=== PATIENT | male | born 1950 | race Caucasian/White ===

== ENCOUNTER 2020-12-22 11:14 | Outpatient (CLI) | payer MEDICARE, SELFPAY ==
--- NOTE | 2020-12-22 | ECG_ITS ---
Measurements Intervals [place] Rate: 87 P: FL: 0 QRS: 13 QRSD: 79 T: 29 QT: 357 QTc: 431 Interpretive Statements ATRIAL FIBRILLATION VENTRICULAR PREMATURE COMPLEX ABNORMAL ECG Electronically Signed On 12-22-2020 11:53:58 CDT by Mane Isaac D.O.
--- NOTE | ~2020-12-22 | XR_ITS ---
EXAMINATION: XR lumbar spine 6V w bending DATE: 12/22/2020 12:21 INDICATION: Low back pain TECHNIQUE: Anteroposterior, lateral in neutral, flexion and extension, and bilateral oblique views of the lumbar spine, and cone-down lateral view of the lumbosacral junction were obtained. COMPARISON: None FINDINGS: There are 3 mm of anterolisthesis of L4 on L5. No laxity is present with flexion or extensi on. There is no fracture. The vertebral body heights are maintained. There is moderate loss of interv ertebral disc space height at L4-5 and L5-S1 and mild loss of disc space height throughout the remain darci of the lumbar spine. There is severe facet osteoarthritis of the lower lumbar spine. Small degene rative osteophytes project from the anterior endplates of multiple vertebral bodies. Advanced osteoar thritis is noted in the hips. IMPRESSION: 1. Severe lumbar spondylosis without acute findings. Reviewed, dictated and finalized at location A.
== END 2020-12-22 11:15 | disposition home or self-care (01) ==
PROVIDERS: PCP Internal Medicine; Visit Provider Physician Assistant
DX: M54.5 Low back pain (principal); I49.9 Cardiac arrhythmia, unspecified; M47.816 Spondylosis without myelopathy or radiculopathy, lumbar region; R94.31 Abnormal electrocardiogram [ECG] [EKG]
CPT/HCPCS: 72114; 93005

== ENCOUNTER 2020-12-24 11:37 | Outpatient (CLI) | payer MEDICARE, SELFPAY ==
[2020-12-24 12:37] LABS: Hematocrit 45.6 % (42.0-52.0); Hemoglobin 15.8 g/dL (14.0-18.0); Mean Corpuscular HGB Conc 34.6 g/dl (32-36); Mean Corpuscular Hemoglobin 37.9 pg (26-34); Mean Corpuscular Volume 109.4 fl (80-100); Mean Platelet Volume 10.9 fl (7.4-10.4); Platelet Count Result 249 k/mm3 (150-375); Red Blood Count 4.17 M/mm3 (4.6-6.20); Red Cell Distribution Width 12.6 % (11.5-14.5); White Blood Count 7.9 K/mm3 (4.5-10.0)
[2020-12-24 12:52] LABS: Alanine Aminotransferase 23 U/L (4-50); Albumin Level 4.1 g/dL (3.5-5.1); Alkaline Phosphatase 61 U/L (38-126); Anion Gap 5 mmol/L (8-16); Aspartate Amino Transferase 28 U/L (17-59); Blood Urea Nitrogen 15 mg/dL (9-20); Calcium 9.1 mg/dL (8.4-10.2); Carbon Dioxide 29 mmol/L (22-30); Chloride 107 mmol/L (98-107); Cholesterol 165 mg/dL (0-200); Estimated Glomerular Filt Rate > 60; Glucose 102 mg/dL (75-110); HDL Direct 37 mg/dL; Potassium 4.4 mmol/L (3.4-5.0); Sodium 141 mmol/L (137-145); Triglycerides 50 mg/dL (<150)
[2020-12-24 13:03] LABS: LDL Cholesterol Direct 112 mg/dL
[2020-12-24 13:22] LABS: Prostate Specific Antigen 2.2 ng/mL (< OR = 4.0)
[2020-12-24 15:08] LABS: Folic Acid 15.3 ng/mL (2.76->20); Vitamin B12 < 159.0 pg/mL (239-931)
== END 2020-12-24 11:38 | disposition home or self-care (01) ==
PROVIDERS: PCP Internal Medicine; Visit Provider Physician Assistant
DX: Z12.5 Encounter for screening for malignant neoplasm of prostate (principal); R53.83 Other fatigue; R71.8 Other abnormality of red blood cells; I10 Essential (primary) hypertension
CPT/HCPCS: 36415; 80053; 80061; 82607; 82746; 84153; 84443; 85027; G0103

== ENCOUNTER 2022-10-29 10:25 | Outpatient (CLI) | payer MEDICARE, SELFPAY ==
[2022-10-29 11:14] LABS: Basophils Absolute Auto 0.1 K/mm3 (0.0-0.1); Basophils Percent Auto 0.6 % (0.2-1.2); Eosinophils Absolute Auto 0.3 K/mm3 (0-0.3); Eosinophils Percent Auto 3.1 % (0-4.4); Hemoglobin 17.3 g/dL (14.0-18.0); Immature Granulocyte Absolute 0.03 K/mm3 (0.00-0.031); Immature Granulocyte Percent A 0.4 % (0-0.5); Lymphocytes Absolute Auto 1.91 K/mm3 (0.9-3.2); Mean Corpuscular HGB Conc 33.9 g/dl (32-36); Mean Corpuscular Hemoglobin 31.9 pg (26-34); Mean Corpuscular Volume 93.9 fl (80-100); Monocytes Absolute Auto 0.6 K/mm3 (0.1-0.6); Monocytes Percent Auto 7.6 % (2.6-8.5); Neutrophils Absolute Auto 5.4 K/mm3 (1.3-6.7); Neutrophils Percent Auto 65.3 % (45.5-73.1); Platelet Count Result 250 k/mm3 (150-375); Red Blood Count 5.43 M/mm3 (4.6-6.20); Red Cell Distribution Width 13.4 % (11.5-14.5); White Blood Count 8.3 K/mm3 (4.5-10.0)
[2022-10-29 11:21] LABS: Alanine Aminotransferase 32 U/L (6-50); Albumin Level 4.3 g/dL (3.5-5.1); Alkaline Phosphatase 81 U/L (38-126); Anion Gap 9 mmol/L (8-16); Aspartate Amino Transferase 32 U/L (17-59); Bilirubin,Total 1.3 mg/dL (0.2-1.3); Blood Urea Nitrogen 13 mg/dL (9-20); Calcium 8.5 mg/dL (8.4-10.2); Carbon Dioxide 26 mmol/L (22-30); Chloride 102 mmol/L (98-107); Cholesterol 185 mg/dL (0-200); Estimated Glomerular Filt Rate > 60; Glucose 86 mg/dL (65-110); HDL Direct 45 mg/dL; Potassium 3.9 mmol/L (3.4-5.0); Sodium 137 mmol/L (137-145); Triglycerides 54 mg/dL (<150)
[2022-10-29 11:32] LABS: LDL Cholesterol Direct 106 mg/dL
[2022-10-29 11:52] LABS: Prostate Specific Antigen 2.1 ng/mL (< OR = 4.0)
[2022-10-29 12:27] LABS: Folic Acid 14.4 ng/mL (2.76->20)
== END 2022-10-29 10:26 | disposition home or self-care (01) ==
PROVIDERS: PCP Physician Assistant; Visit Provider Physician Assistant
DX: R53.83 Other fatigue (principal); I10 Essential (primary) hypertension; Z12.5 Encounter for screening for malignant neoplasm of prostate
CPT/HCPCS: 36415; 80053; 80061; 82607; 82746; 84153; 84443; 85025; G0103

== ENCOUNTER 2024-07-26 10:03 | Outpatient (CLI) | payer MEDICARE, SELFPAY ==
--- NOTE | ~2024-07-26 | XR_ITS ---
AP view of the pelvis and AP and lateral views of the bilateral hips Clinical history: Pain Findings: No acute fracture or dislocation is seen. There is severe degenerative change of both hip j oints, with joint space narrowing, a superiorly. There is [id number] appearance with reactive scler osis and mild remodeling of the femoral heads, left worse than right. There is subchondral cystic bhupendra nge in the bilateral acetabula and in the left femoral head.. Soft tissues are unremarkable. Impression: Severe osteoarthritis of both hip joints. Reviewed, dictated and finalized at location M. ER ROCKET ENGINE Impression: Severe osteoarthritis of both hip joints.
== END 2024-07-26 10:04 | disposition home or self-care (01) ==
LOC: MICIMG 10:04
PROVIDERS: PCP Nurse Practitioner; Visit Provider Nurse Practitioner
DX: M16.0 Bilateral primary osteoarthritis of hip (principal)
CPT/HCPCS: 73521

== ENCOUNTER 2024-07-27 14:09 | Outpatient (CLI) | payer MEDICARE, SELFPAY ==
--- NOTE | ~2024-07-27 | US_ITS ---
EXAMINATION: US venous doppler LE RT DATE: 07/27/2024 15:05 INDICATION: Right lower limb swelling. Other specified soft tissue disorders. TECHNIQUE: Grayscale ultrasound images without and with compression and Doppler ultrasound images of the right lower extremity veins were obtained. COMPARISON: None. FINDINGS: The visualized portions of right common femoral vein, profunda (deep) femoral vein, femoral vein, pop liteal vein, peroneal veins, posterior tibial veins, and greater saphenous vein outflow are patent. IMPRESSION: 1. No deep venous thrombosis. Reviewed, dictated and finalized at location A. RNATIONAL ACCOUNTANT
== END 2024-07-27 14:10 | disposition home or self-care (01) ==
PROVIDERS: PCP Nurse Practitioner; Visit Provider Nurse Practitioner
DX: M79.89 Other specified soft tissue disorders (principal)
CPT/HCPCS: 93971

== ENCOUNTER 2024-10-10 11:07 | Outpatient (CLI) | payer MEDICARE, SELFPAY ==
[2024-10-10 12:04] LABS: Basophils Absolute Auto 0.1 K/mm3 (0.0-0.1); Basophils Percent Auto 0.8 % (0.2-1.2); Eosinophils Absolute Auto 0.2 K/mm3 (0-0.3); Hematocrit 50.2 % (42.0-52.0); Hemoglobin 16.7 g/dL (14.0-18.0); Immature Granulocyte Absolute 0.04 K/mm3 (0.00-0.031); Immature Granulocyte Percent A 0.4 % (0-0.5); Lymphocytes Absolute Auto 1.33 K/mm3 (0.9-3.2); Lymphocytes Percent Auto 13.8 % (18.3-44.2); Mean Corpuscular HGB Conc 33.3 g/dl (32-36); Mean Corpuscular Hemoglobin 31.9 pg (26-34); Mean Platelet Volume 11.3 fl (7.4-10.4); Monocytes Absolute Auto 0.9 K/mm3 (0.1-0.6); Monocytes Percent Auto 9.2 % (2.6-8.5); Neutrophils Absolute Auto 7.1 K/mm3 (1.3-6.7); Neutrophils Percent Auto 73.8 % (45.5-73.1); Platelet Count Result 262 k/mm3 (150-375); Red Blood Count 5.23 M/mm3 (4.6-6.20); Red Cell Distribution Width 14.2 % (11.5-14.5); White Blood Count 9.7 K/mm3 (4.5-10.0)
[2024-10-10 12:08] LABS: Alanine Aminotransferase 25 U/L (6-50); Alkaline Phosphatase 75 U/L (38-126); Anion Gap 11 mmol/L (4-12); Aspartate Amino Transferase 30 U/L (17-59); Bilirubin,Total 1.2 mg/dL (0.2-1.3); Blood Urea Nitrogen 23 mg/dL (9-20); Calcium 8.8 mg/dL (8.4-10.2); Carbon Dioxide 23 mmol/L (22-30); Chloride 106 mmol/L (98-107); Cholesterol 172 mg/dL (0-200); Estimated Glomerular Filt Rate > 60; Glucose 103 mg/dL (65-110); HDL Direct 44 mg/dL; Potassium 4.1 mmol/L (3.4-5.0); Sodium 140 mmol/L (137-145); Triglycerides 80 mg/dL (<150)
[2024-10-10 12:19] LABS: LDL Cholesterol Direct 100 mg/dL
[2024-10-10 12:38] LABS: Prostate Specific Antigen 2.6 ng/mL (< OR = 4.0)
--- OUTSIDE RECORDS SUMMARY | 2024-10-11 23:41 | XMS_ITS | Referral Summary ---
Author Organization [facility] [place] [address] Address [address] [place] [address] Care Team Providers Care Drafter Structural Name Role Phone Doron Reynoso Primary Care Provider Allergies No known active allergies Medications aspirin 325 mg tablet Take 325 mg by mouth every 7 days Active Active Problems Problem Noted Date Diagnosed Date Right low back pain 01/02/2021 History of TIA (transient ischemic attack) 01/02 Essential hypertension 01/02/2021 Atrial fibrillation (CMS/HCC) 01/02/2021 Social History Tobacco Use Types Packs/Day Years Used Date Smoking Tobacco: Never Smokeless Tobacco: Never Personal Safety Answer Date Recorded Getting School Help Needed Not on file 11/17 Sex and Gender Information Value Date Recorded Sex Assigned at Not on file 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 Gender Identity Not on file Sexual Orientation Not on file Last Filed Vital Signs Vital Sign Reading Time Taken Comments Blood Pressure 102/64 01/02/2021 11:12 AM CDT Pulse 106 01/02/2021 11:12 AM CDT Temperature - - Respiratory Rate - - Oxygen Saturation 98% 01/02/2021 11:12 AM CDT Inhaled Oxygen Concentration - - Weight 87.1 kg (192 lb) 01/02/2021 11:12 AM CDT Height 175.3 cm (5' 9 ) 01/02/2021 11:12 AM CDT Body Mass Index 28.35 01/02/2021 11:12 AM CDT Plan of Treatment Not on file Insurance MEDICARE Care Teams Drafter Structural Relationship Specialty Start Date End Date Doron Reynoso PA [address] [facility] [address] [place], [place] [address] PCP - General Physician Brazer Helper Induction 01/01/21
--- OUTSIDE RECORDS SUMMARY | 2024-10-11 23:41 | XMS_ITS | Clinical Summary ---
Author Organization [facility] [place] [address] Address [address] [place] [address] Care Team Providers Care Proof Plate Maker Name Role Phone Doron Reynoso Primary Care Provider Allergies No known active allergies Medications aspirin 325 mg tablet Take 325 mg by mouth every 7 days Active Active Problems Problem Noted Date Diagnosed Date Right low back pain 01/02/2021 History of TIA (transient ischemic attack) 01/02 Essential hypertension 01/02/2021 Atrial fibrillation (CMS/HCC) 01/02/2021 Medical History Medical History Date Comments Broken clavicle TIA (transient ischemic attack) Hypertension Family History Medical History Relation Name Comments Alzheimer's disease Father Heart failure Mother Relation Name Status Comments Father (Age 82) Mother (Age 92) Social History Tobacco Use Types Packs/Day Years Used Date Smoking Tobacco: Never Smokeless Tobacco: Never Personal Safety Answer Date Recorded Getting School Help Needed Not on file 11/17 Sex and Gender Information Value Date Recorded Sex Assigned at Not on file 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
== END 2024-10-10 11:08 | disposition home or self-care (01) ==
PROVIDERS: PCP Internal Medicine; Referring Provider Internal Medicine; Visit Provider Internal Medicine Cardiovascular Disease
DX: I48.91 Unspecified atrial fibrillation (principal); Z12.5 Encounter for screening for malignant neoplasm of prostate
CPT/HCPCS: 36415; 80053; 80061; 84153; 84443; 85025; G0103

== ENCOUNTER 2024-11-08 08:18 | Outpatient (CLI) | payer MEDICARE, SELFPAY ==
--- NOTE | ~2024-11-08 | NM_ITS ---
EXAMINATION: NM logan stress w perfusion DATE: 11/08/2024 12:10 INDICATION: Encounter for preprocedural cardiovascular exam TECHNIQUE: Rest images were obtained following intravenous administration of 10.6 mCi Tc99m tetrofosm in (Myoview). The patient was infused intravenously with Lexiscan (Regadenoson). Then, 34.7 mCi Tc99m tetrofosmin (Myoview) was administered intravenously, and stress images were obtained. Data was atif nstructed into short axis and horizontal and vertical long axis SPECT images. Gated SPECT images were also obtained. COMPARISON: None. FINDINGS: There is no definite reversible or fixed perfusion abnormality to suggest ischemia or infar ction. There is normal left ventricular chamber size, wall motion and ejection fraction. Left ventr icular ejection fraction measures >70%. IMPRESSION: 1. Normal myocardial perfusion at rest and during stress. 2. Left ventricular ejection fraction measuring >70%. Reviewed, dictated and finalized at location A. UREMENT BUYER
--- OUTSIDE RECORDS SUMMARY | 2024-11-08 08:25 | XMS_ITS | Clinical Summary ---
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
--- OUTSIDE RECORDS SUMMARY | 2024-11-08 08:25 | XMS_ITS | Referral Summary ---
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
--- NOTE | 2024-11-08 08:40 | ECHO_ITS ---
Patient Info Name: Ervin Monique Age: 74 years : 1950 Gender: Male Ht: 67 in Wt: 159 lbs BSA: 1.86 m2 HR: 85 bpm BP: 131 / 94 mmHg Heart Rhythm: Atrial Fibrillation Technical Quality: Good Exam Date: 11/08/2024 8:52 AM Exam Location: Echo Lab Exam Room: OP Patient Status: Outpatient Admit Date: 11/08/2024 Staff Ordering Physician: Mane Isaac DO Inspector Subassemblies: Kenia Gregg RDCS Attending Provider: Mane Isaac DO Referring Physician: Poncho RUSH; Exam Type: CA echo doppler color flow Study Info Indications - Afib Complete two-dimensional, color flow and Doppler transthoracic echocardiogram is performed. Summary 1. Complete two-dimensional, color flow and Doppler transthoracic echocardiogram is performed. 2. Left ventricular chamber dimension is normal. 3. Left ventricular systolic function is normal, estimated at 60-65%. 4. The left ventricular diastolic function is normal. 5. E/e' 6 is not elevated. 6. Atrial fibrillation. 7. Left atrial chamber dimension is mildly enlarged. 8. Right atrial chamber dimension is mildly enlarged. 9. There is trace aortic valve regurgitation. 10. There is trace mitral valve regurgitation. 11. There is mild tricuspid valve regurgitation. 12. No pulmonary hypertension, estimated pulmonary arterial systolic pressure is 32 mmHg. 13. The prox ascending aorta size is mildly dilated at 4.2 cm. Left Ventricle E/e' 6 is not elevated. Atrial fibrillation. Left ventricular chamber dimension is normal. Left ventricular systolic function is normal, estimated at 60-65%. The left ventricular diastolic function is normal. Right Ventricle Right ventricular chamber dimension is normal. Right ventricular systolic function is normal. Left Atria Left atrial chamber dimension is mildly enlarged. Right Atria Right atrial chamber dimension is mildly enlarged. Aortic Valve The aortic valve is trileaflet. There is no aortic valve stenosis. There is trace aortic valve regurgitation. Pulmonic Valve There is no pulmonic regurgitation. Mitral Valve There is no mitral valve stenosis. There is trace mitral valve regurgitation. Tricuspid Valve There is mild tricuspid valve regurgitation. No pulmonary hypertension, estimated pulmonary arterial systolic pressure is 32 mmHg. Pericardium/Pleural There is no pericardial effusion. Inferior Vena Cava Normal inferior vena cava with >50% collapse upon inspiration consistent with normal right atrial pressure, 5 mmHg. Aorta The prox ascending aorta size is mildly dilated at 4.2 cm. The aortic root size at the sinus of Valsalva is normal. Left Ventricular Outflow Tract Name Value Normal LVOT 2D LVOT Diameter 2.5 cm LVOT Doppler LVOT Peak Gradient 1 mmHg LVOT Mean Gradient 1 mmHg LVOT VTI 12 cm LVOT VTI/AV VTI Ratio 0.7 LVOT Stroke Volume 59 ml LVOT CO 5.5 l/min LVOT CI 3.0 l/min/m2 Pulmonic Valve Name Value Normal PV Doppler PV Peak Gradient 3 mmHg Mitral Valve Name Value Normal MV Doppler MV Peak Gradient 4 mmHg MV Mean Gradient 1 mmHg MV Decel Wake 552 cm/s2 MV PHT 38 ms MV Area (PHT) 5.7 cm2 4.0-5.0 MV Area (Cont Eq VTI) 4.1 cm2 MV Regurgitation Doppler MR Peak Gradient 54 mmHg MV Diastolic Function MV E Peak Velocity 73 cm/s MV A Peak Velocity 34 cm/s MV E/A 2.2 MV Decel Time 133 ms MV Annular TDI MV E/e' (Septal) 6.1 <=8.0 MV E/e' (Lateral) 6.3 <=8.0 MV E/e' (Average) 6.2 Tricuspid Valve Name Value Normal TV Regurgitation Doppler TR Peak Velocity 261 cm/s TR Peak Gradient 24 mmHg Estimated PAP/RSVP RA Pressure 5 mmHg <=5 PA Systolic Pressure 32 mmHg <36 RV Systolic Pressure 32 mmHg <36 Aortic Valve Name Value Normal AV Doppler AV Peak Velocity 90 cm/s AV Peak Gradient 3 mmHg AV Mean Gradient 2 mmHg AV VTI 17 cm AV Area (Cont Eq VTI) 3.5 cm2 >=3.0 AV Area (Cont Eq Davion) 3.0 cm2 AV Regurgitation 2D LVOT Area 4.7 cm2 AV Regurgitation Doppler AR Decel Time 1,881 ms AR Decel Wake 185 cm/s2 AR PHT 545 ms Ventricles Name Value Normal LV Dimensions 2D/MM IVS Diastolic Thickness (2D) 0.7 cm 0.6-1.0 LVID Diastole (2D) 4.7 cm 4.2-5.8 LVIW Diastolic Thickness (2D) 0.8 cm 0.6-1.0 LVID Systole (2D) 3.7 cm 2.5-4.0 LVOT Diameter 2.5 cm LV Mass (2D Cubed) 119.14 g 88.00-224.00 LV Mass Index (2D Cubed) 64 g/m2 49-115 Relative Wall Thickness (2D) 0.34 LV Fractional Shortening/Ejection Fraction 2D/MM LV Fractional Shortening (2D) 22 % 25-43 LV EF (2D Teicholz) 45 % 52-72 LV Diastolic Volume (4C MOD) 82 ml LV EF (4C MOD) 64 % LV Diastolic Length (4C) 7.8 cm LV Systolic Length (4C) 7.1 cm LV Stroke Volume (4C MOD) 52 ml Atria Name Value Normal LA Dimensions LA Volume (4C A-L) 63 ml RA Dimensions RA Area (4C) 19.7 cm2 <=18.0 Report Signatures
--- NOTE | 2024-11-08 08:40 | EST_ITS ---
Patient Info Name: Ervin Monique Age: 74 years : 1950 Gender: Male Ht: 68 in Wt: 159 lbs BSA: 1.87 m2 Exam Date: 11/08/2024 11:01 AM Exam Location: Echo Lab Patient Status: Outpatient Admit Date: 11/08/2024 Staff Ordering Physician: Mane Isaac DO Attending Provider: Mane Isaac DO Exercise Technologist: Mena Simmons RDCS Exam Type: CA stress logan w NM Study Info Indications Z01.810 - Encounter for preprocedural cardiovascular examination A regadenoson stress test was performed. Summary 1. 1. Negative lexiscan stress test for ischemic ST changes by ECG criteria. 2. 2. Baseline hypertension. 3. 3. Nuclear scan to follow and will be reported separately. Please correlate with it. 4. 4. Patient informed of the above results. Protocol: Lexiscan Stress ECG Details Stage: REST Duration (min): 1 min : 37 sec HR (bpm): 87 SBP (mmHg): 180 DBP (mmHg): 96 Stage: REST Duration (min): 5 min : 28 sec HR (bpm): 83 SBP (mmHg): 180 DBP (mmHg): 96 Stage: STAGE 1 Duration (min): 1 min : 0 sec HR (bpm): 126 SBP (mmHg): 152 DBP (mmHg): 92 Stage: RECOVERY Duration (min): 1 min : 0 sec HR (bpm): 137 SBP (mmHg): 152 DBP (mmHg): 92 Stage: RECOVERY Duration (min): 2 min : 0 sec HR (bpm): 121 SBP (mmHg): 152 DBP (mmHg): 92 Stage: RECOVERY Duration (min): 3 min : 0 sec HR (bpm): 114 SBP (mmHg): 152 DBP (mmHg): 97 Stage: RECOVERY Duration (min): 3 min : 22 sec HR (bpm): 112 SBP (mmHg): 152 DBP (mmHg): 97 Rest HR: 83 bpm Peak HR: 144 bpm Rest Sys BP: 180 mmHg Peak Sys BP: 152 mmHg Max Pred HR: 146 bpm % Max Pred HR: 99 % Target HR: 124 bpm Max RPP: 21,888 bpm*mmHg Termination Reason: Completed protocol Cardiac Symptoms: Shortness of breath Total Time: 1 min : 0 sec Rest Denise BP: 96 mmHg Peak Denise BP: 97 mmHg Total Dose: 0.4 mg Resting ECG Atrial fibrillation. Stress ECG No ST changes. Arrhythmias None. Report Signatures
== END 2024-11-08 08:19 | disposition home or self-care (01) ==
PROVIDERS: PCP Internal Medicine; Visit Provider Internal Medicine Cardiovascular Disease
DX: I48.91 Unspecified atrial fibrillation (principal); Z01.810 Encounter for preprocedural cardiovascular examination; I10 Essential (primary) hypertension
CPT/HCPCS: 78452; 93017; 93306; A9502; J2785

== ENCOUNTER 2024-12-10 09:55 | Outpatient (CLI) | payer MEDICARE, SELFPAY ==
--- OUTSIDE RECORDS SUMMARY | 2024-12-10 11:24 | XMS_ITS | Referral Summary ---
Author Organization [facility] [address] Address [address] [place] [address] Care Team Providers Care Molder Machine Name Role Phone Doron Reynoso Primary Care Provider Allergies No known active allergies Medications aspirin 325 mg tablet Take 325 mg by mouth every 7 days Active Active Problems Problem Noted Date Diagnosed Date Right low back pain 01/02/2021 History of TIA (transient ischemic attack) 01/02 Essential hypertension 01/02/2021 Atrial fibrillation 01/02/2021 Social History Tobacco Use Types Packs/Day Years Used Date Smoking Tobacco: Never Smokeless Tobacco: Never Personal Safety Answer Date Recorded Getting School Help Needed Not on file 11/17 Sex and Gender Information Value Date Recorded Sex Assigned at Not on file 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
--- OUTSIDE RECORDS SUMMARY | 2024-12-10 11:24 | XMS_ITS | Clinical Summary ---
Author Organization [facility] [place] [address] Address [address] [place] [address] Care Team Providers Care Assistant Professor Of Biology Name Role Phone Doron Reynoso Primary Care Provider Allergies No known active allergies Medications aspirin 325 mg tablet Take 325 mg by mouth every 7 days Active Active Problems Problem Noted Date Diagnosed Date Right low back pain 01/02/2021 History of TIA (transient ischemic attack) 01/02 Essential hypertension 01/02/2021 Atrial fibrillation 01/02/2021 Medical History Medical History Date Comments [...] on file 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
[2024-12-10 13:14] LABS: Basophils Percent Auto 0.5 % (0.2-1.2); Eosinophils Absolute Auto 0.1 K/mm3 (0-0.3); Eosinophils Percent Auto 1.6 % (0-4.4); Hematocrit 49.2 % (42.0-52.0); Immature Granulocyte Absolute 0.03 K/mm3 (0.00-0.031); Immature Granulocyte Percent A 0.4 % (0-0.5); Lymphocytes Absolute Auto 2.06 K/mm3 (0.9-3.2); Lymphocytes Percent Auto 25.7 % (18.3-44.2); Mean Corpuscular HGB Conc 32.5 g/dl (32-36); Mean Corpuscular Hemoglobin 31.3 pg (26-34); Mean Corpuscular Volume 96.1 fl (80-100); Mean Platelet Volume 11.5 fl (7.4-10.4); Monocytes Absolute Auto 0.7 K/mm3 (0.1-0.6); Monocytes Percent Auto 9.1 % (2.6-8.5); Neutrophils Percent Auto 62.7 % (45.5-73.1); Platelet Count Result 236 k/mm3 (150-375); Red Blood Count 5.12 M/mm3 (4.6-6.20); Red Cell Distribution Width 14.8 % (11.5-14.5)
[2024-12-10 13:24] LABS: Albumin Level 4.3 g/dL (3.5-5.1); Anion Gap 10 mmol/L (4-12); Blood Urea Nitrogen 15 mg/dL (9-20); Calcium 9.4 mg/dL (8.4-10.2); Carbon Dioxide 25 mmol/L (22-30); Chloride 107 mmol/L (98-107); Estimated Glomerular Filt Rate > 60; Glucose 90 mg/dL (65-110); Sodium 142 mmol/L (137-145)
[2024-12-10 13:25] LABS: Hemoglobin A1C 5.4 % (<5.7)
[2024-12-10 13:26] LABS: Urine Cotinine NEGATIVE
== END 2024-12-10 09:56 | disposition home or self-care (01) ==
LOC: ANHSURGERY 10:02
PROVIDERS: PCP Internal Medicine; Visit Provider Orthopaedic Surgery
DX: M16.11 Unilateral primary osteoarthritis, right hip (principal); Z01.818 Encounter for other preprocedural examination
CPT/HCPCS: 80048; 80307; 82040; 83036; 85025; 87081

== ENCOUNTER 2024-12-31 01:04 | Day surgery (SDC) | payer MEDICARE, SELFPAY ==
--- NOTE | 2024-12-10 10:00 | PC.NURSE ---
Report to the Outpatient Waiting Room, entrance under the green pavilion located off [facility], at time _6 AM on date __12/31/24 . Planned Procedure Time: __7:30 AM .? Time changes happen often and if your time is changed the preop area will call you the afternoon before. - You and your visitor will be asked to self-screen and do not enter if you have any COVID symptoms. Please call surgeon if you need to reschedule. - A mask is optional within the hospital at this time. Patients may have clear liquids (water, carbonated beverages, clear teas, apple juice) until 3 hours prior to surgery ( 4:30 AM)with a maximum of 20 ounces. - No food from midnight until time of surgery and no smoking, or chewing tobacco (or any form of nicotine). No chewing gum, candy or mints. Take only the following medications with a SIP of water on the morning of surgery: ____none DO NOT STOP ANY OF YOUR OTHER PRESCRIPTION MEDICATIONS PRIOR TO SURGERY EXCEPT THE FOLLOWING Hold all vitamins and supplements for 3 days per anesthesiologist.LAST DOSE 12/27/24 Medications to discontinue per physician Please no make-up, nail [place] citizen, hairspray, perfume, deodorant, or body powder the day of surgery.? No jewelry (including any body piercings) or valuables the day of surgery, leave them at home.? Please take a shower or bath the night before, or the morning of, surgery with an antibacterial soap.? Wear comfortable, loose fitting clothing.? Children are encouraged to wear pajamas. - Jewelry must be removed prior to entering the operating room.? Rings and piercings that are not removed may be cut off. - The hospital will not accept responsibility for valuables.? - Please leave all valuables, including medications, at home the day of surgery. If you are going home after surgery, a licensed log truck driver must drive you home.? - NO public transportation without another adult if you receive anesthesia. - We recommend that an adult stay with you for 24 hours following discharge. - We also recommend that you do not drive, make important decision, drink alcoholic beverages, or take any drugs that were not prescribed by your health care provider for at least 24 hours after your discharge time. Follow any additional instructions given to you from your surgeon. VERBAL AND WRITTEN instructions given to __PATIENT__AND YENNY and asked if any additional questions and then verbalized understanding. Patient advised to call surgeon office or pre surgery nurse liaison [phone] if any additional questions.
[2024-12-10 10:07] VITALS: BMI 24.8
[2024-12-10 11:09] VITALS: BP 160/99; PULSE 73; RESP 18; TEMP 36.6; O2SAT 100
--- NOTE | 2024-12-28 07:16 | P.HP_ITS ---
H&P: HPI History of Present Illness Date/Time: 12/28/24 07:16 Chief Complaint: Right hip DJD Narrative: 74-year-old male presents today for a right anterior total hip arthroplasty. Patient has been having symptoms in the hip for more than 6 months. He has significant osteoarthritis in both hips at this point the right is more symptomatic than the left. He feels this ready proceed total hip arthroplasty rather than continue nonsurgical treatment Review of Systems Review of Systems: All systems reviewed & are unremarkable except as noted in HPI and below PMFSH Past Medical History Medical History Broken clavicle TIA (transient ischemic attack) Family History Family History Father Family history of Alzheimer's disease Mother No problems noted. Sibling No problems noted. Social History Social History Smoking status: Never smoker Second hand tobacco smoke exposure: No Additional smoking assessment comments: DENIES ANY FORM OF TOBACCO USE Alcohol intake: current Drinks per week: 1 Alcohol use details: BEER Substance use: current Substance use type: marijuana Last use: 12/09/24 Do You Feel Safe in your Home?: Yes Lack of Transportation: No Lack of Food: Never True Current Housing: I Have Housing Concerned About Future Housing: No Difficulty Paying Gas/Electric Bills: No Difficulty Paying for Meds: No Education: High School Diploma/GED Difficulty w/ Childcare or Family Care: No Living arrangements: with family Occupation/Education: retired Additional occupation/education comments: [employer] Gender identity (if verbalized by the patient): Male Spiritual care concerns: No Meds Home Medications and Allergies Home Medications ?Medication ?Instructions ?Recorded ?Confirmed ?Type ascorbic acid (vitamin C) 500 mg 500 mg PO DAILY 12/10/24 12/19/24 History tablet (C-500) krill oil 500 mg capsule 350 mg PO DAILY 12/10/24 12/19/24 History magnesium glycinate 100 mg (as 400 mg PO DAILY 12/10/24 12/19/24 History glycinate) tablet (Mag Glycinate) multivitamin 1 tablet PO DAILY 12/10/24 12/19/24 History red beet 500 mg capsule 1,100 mg PO DAILY 12/10/24 12/19/24 History turmeric 400 mg capsule 500 mg PO DAILY 12/10/24 12/19/24 History zinc 50 mg capsule 50 mg PO DAILY 12/10/24 12/19/24 History Allergies Allergy/AdvReac Type Severity Reaction Status Date / Time No Known Allergies Allergy Verified 12/19/24 10:03 Exam Narrative: 74-year-old male alert pleasant. He is 6 ft 1 and 163 lb BMI is 24.7. He walks with a mild limp. Right hip flexion is to 60?, internal rotation 25? short of neutral external rotation of 30?. Range of motion of the hip causes him anterior lateral hip pain. Stinchfield maneuver causes him anterior lateral hip pain. He has normal abduction strength in lateral position and minimal tenderness over the greater trochanter. Normal sensation right lower extremity. 2+ dorsalis pedis pulse palpable. 1+ edema in the right ankle which is chronic. Skin around the hip groin crease are normal. Resp: Auscultation: clear to auscultation bilaterally Cardio: Rate: other Rhythm: abnormal rhythm Assessment and Plan Assessment and plan (1) Primary osteoarthritis of both hips: Code(s): M16.0 - Bilateral primary osteoarthritis of hip Status: Acute Assessment and Plan: 74-year-old male who has advanced osteoarthritis in both hips. At this point the right 1 is more symptomatic than the left her he feels he is ready proceed with total hip arthroplasty at this point. Surgical procedures well as the risks and complications were discussed in detail all questions were answered and we will proceed. Patient has a history of AFib. He has seen Dr. Isaac. He had an echocardiogram showing ejection fraction at 60-65% with normal left ventricular function. He has had a Lexiscan stress test which showed normal myocardial perfusion no ST changes. He has been cleared from cardiology. Patient will also see his primary care doctor for pre-surgical clearance. He will avoid any aspirin ibuprofen products 1 week prior to surgery. Patient's nasal swab was negative. Hemoglobin 16.0 platelets were 236. Chem panel was al l within normal limits creatinine 0.91
[2024-12-31] VITALS (15 sets, daily range): BP systolic 90–167; BP diastolic 61–109; PULSE 78–103; RESP 10–18; TEMP 35.9–36.7; O2SAT 96–100
--- NOTE | ~2024-12-31 | XR_ITS ---
EXAMINATION: XR hip RT 1V w AP pelvis DATE: 12/31/2024 13:24 INDICATION: Status post right total hip arthroplasty TECHNIQUE: Anteroposterior view of the pelvis and cross-table lateral views of the right hip were obt ained. COMPARISON: None. FINDINGS: Interval placement of a noncemented right total hip arthroplasty which is in near-anatomic alignment. The acetabular component is affixed with at least a single screw. No acute fracture. Advanced osteoa rthritis at the left hip with prominent subarticular cystlike change at both sides of the cephalad as pect of the joint space. Several phleboliths in the pelvis. IMPRESSION: 1. Right total hip arthroplasty in near-anatomic alignment with no acute osseous abnormality. 2. Advanced left hip osteoarthritis. Reviewed, dictated and finalized at location A. IMPRESSION: 1. Right total hip arthroplasty in near-anatomic alignment with no acute osseou s abnormality. 2. Advanced left hip osteoarthritis.
--- NOTE | ~2024-12-31 | XR_ITS ---
INTRAOPERATIVE FLUOROSCOPY: CLINICAL HISTORY: 74 years old Male; RIGHT TOTAL HIP ANTERIOR APPROACH PROCEDURE COMMENTS: Limited intraoperative fluoroscopy of the right hip was performed. CUMULATIVE DOSE: 10.4 mGy FLUOROSCOPY TIME: 51.6 seconds FINDINGS/IMPRESSION: Please refer to operative note for further details. Reviewed, dictated and finalized at location A.
--- OUTSIDE RECORDS SUMMARY | 2024-12-31 01:07 | XMS_ITS | Clinical Summary ---
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
--- OUTSIDE RECORDS SUMMARY | 2024-12-31 01:07 | XMS_ITS | Referral Summary ---
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
[2024-12-31] MEDS: VANCOMYCIN 1,000 MG/NS 250 ML 1,000 MG/250 ML BAG 250 MG IVPB ×2 (06:06→17:33)
[2024-12-31] MEDS: ACETAMINOPHEN 500 MG TABLET 1000 MG PO (06:30)
[2024-12-31] MEDS: LACTATED RINGERS 1,000 ML 30 ML IV CONT (06:35)
[2024-12-31] MEDS: TRANEXAMIC ACID 1,000MG/ISO100 1,000 MG/100 ML BAG 200 MG IVPB (06:35)
--- NOTE | 2024-12-31 07:13 | P.PNAN_ITS ---
Anes - Initial Pre Proc Eval Procedure: Operation Date: 12/31/24 07:30 Proposed Procedures p Right Total Hip Arthroplasty Anterior Approach - Hieu Lujan MD Date/Time: 12/31/24 07:13 Surgeon: Hieu Lujan MD Pre Op Diagnosis: oa right hip Patient Data Age: 74 Gender: M Height: 1.73 m Weight: 72.9 kg Last Vital Signs Temp 97.7 F 12/31/24 06:15 Pulse 90 12/31/24 06:15 Resp 18 12/31/24 06:15 BP 164/89 H 12/31/24 06:15 Pulse Ox 100 12/31/24 06:15 O2 Del Method Room Air 12/31/24 06:15 Allergies Allergy/AdvReac Type Severity Reaction Status Date / Time No Known Allergies Allergy Verified 12/31/24 06:18 Home Medications ?Medication ?Instructions ?Recorded ?Confirmed ?Type ascorbic acid (vitamin C) 500 mg 500 mg PO DAILY 12/10/24 12/31/24 History tablet (C-500) krill oil 500 mg capsule 350 mg PO DAILY 12/10/24 12/31/24 History magnesium glycinate 100 mg (as 400 mg PO DAILY 12/10/24 12/31/24 History glycinate) tablet (Mag Glycinate) multivitamin 1 tablet PO DAILY 12/10/24 12/31/24 History red beet 500 mg capsule 1,100 mg PO DAILY 12/10/24 12/31/24 History turmeric 400 mg capsule 500 mg PO DAILY 12/10/24 12/31/24 History zinc 50 mg capsule 50 mg PO DAILY 12/10/24 12/31/24 History Laboratory Tests 12/31/24 06:59 Blood Type Pending Antibody Screen Pending Patient hx anesthesia problems: none Family hx anesthesia problems: none Results Review: All pre-operative results and documents have been reviewed as part of the pre- operative evaluation. [facility] Past Medical History Medical History Broken clavicle TIA (transient ischemic attack) Family History Family History Father Family history of Alzheimer's disease Mother No problems noted. Sibling No problems noted. Social History Social History (Reviewed 12/19/24 @ 10:03 by Brenda Cope [facility] Smoking status: Never smoker Second hand tobacco smoke exposure: No Additional smoking assessment comments: DENIES ANY FORM OF TOBACCO USE Alcohol intake: current Drinks per week: 1 Alcohol use details: BEER Substance use: never Substance use type: does not use Last use: 12/09/24 Do You Feel Safe in your Home?: Yes Lack of Transportation: No Lack of Food: Never True Current Housing: I Have Housing Concerned About Future Housing: No Difficulty Paying Gas/Electric Bills: No Difficulty Paying for Meds: No Education: High School Diploma/GED Difficulty w/ Childcare or Family Care: No Living arrangements: with family Occupation/Education: retired Additional occupation/education comments: [employer] Gender identity (if verbalized by the patient): Male Spiritual care concerns: No Anes - Eval Final PreProcedure Day of Procedure 12/31/24 07:13 Patient weight: normal Heart: regular rate and rhythm Lungs: clear to auscultation Airway: Mallampati scale class II Neurological: alert and oriented Last oral intake: >/= 8 hours ASA classification: III Emergent: no Anesthetic plan: proceed Anesthesia type and monitoring: general ETT and standard monitoring Results Review: All pre-operative results and documents have been reviewed as part of the pre- operative evaluation. Informed Consent: The patient's anesthetic plan and its attendant risks and benefits were discussed with the patient/family/POA. Questions were solicited and answers provided to the satisfaction of the patient/family/POA.
--- NOTE | 2024-12-31 07:13 | WPDHPUPDATE1 ---
History and Physical Update Update Date/Time: 12/31/24 07:13 History and Physical has been reviewed, including an updated exam of the patient. There are NO changes in the patient's condition. Risks, benefits, and alternatives have been discussed and questions answered. Patient agrees to proceed with procedure.
[2024-12-31] MEDS: ceFAZolin 2 GM/D5W 50 ML 2 GM/50 ML BAG IVPB ×3 (07:33→23:54)
[2024-12-31] MEDS: ceFAZolin SODIUM 1 GM VIAL 3 GM (08:17)
[2024-12-31] MEDS: SODIUM CHLORIDE 0.9% IV 37.7 ML, MORPHINE SULFATE INJ (*CRX) 2 MG, ROPivacaine HCL 1% 2... INFILTRATE (08:18)
[2024-12-31] MEDS: ceFAZolin SODIUM 1 GM VIAL IV PUSH (10:29)
[2024-12-31] MEDS: TRANEXAMIC ACID 1,000 MG/10 ML AMPUL 1000 MG IV PUSH (10:53)
[2024-12-31] MEDS: KETOROLAC 15 MG/ML VIAL (*BKC) IV PUSH (11:00)
--- NOTE | 2024-12-31 11:17 | W.PM.PROC2 ---
Procedure Note - Detailed Date of Procedure 12/31/24 Pre-op Diagnosis oa right hip Post-op Diagnosis Same Procedure Performed Right total hip arthroplasty direct anterior approach Surgeon Hieu Lujan MD Professional Volleyball Player Flip Gruber Anesthesia General Description of Procedure Patient was brought to the operating room and general anesthesia was administered. Cortez catheter was placed. He received 2 g of Ancef weight based vancomycin 1 g of TXA preoperatively. His feet were padded boots applied SCDs applied and running during the procedure. He was transferred to the [facility] table and the right hip prepped draped usual fashion. A 10 cm longitudinal incision was made starting 3 cm lateral to the ASIS. A small somewhat aberrant branch of lateral femoral circumflex nerve crossed from anterior to posterior to mid part of the incision. This was preserved during the operation but did require retraction. We found that retracting it anteriorly was best. Fascia was incised longitudinally elevated off the anterior 1/2 the TFL muscle. Interval between TFL and rectus femoris developed. Crossing branches of ascending lateral femoral circumflex vessels were ligated with suture divided. Retractor was placed anterior medial capsule in the hip abducted internally rotated the gluteus minimus elevated off the lateral capsule. Inverted T capsulotomy was performed. The femoral neck osteotomy was made according to preoperative templating. He had a short neck and a very large femoral head and large osteophytes which made extraction femoral head a little bit more difficult but this was accomplished after paring down the size of the femoral head by circumferentially reducing the prominence of the osteophytes. Femoral head was mushroom shaped and measured about 50 form mm diameter. Acetabulum was exposed remaining labrum excised. The the leg was externally rotated and extended. Lateral capsular flap was excised. We could not mobilize the femur anteriorly due to the remarkably prominent posterior and posterior superior osteophyte which impinged on the greater trochanter. The leg back in the horizontal position the acetabulum was exposed. We medialized with a a 44 Reamer. Medial osteophyte partially removed. We reamed up to a 53 mm and the 53 mm trial fit properly. A very light reverse reamed with the 54 was performed to remove the sclerotic lip around the acetabulum reaming area the. The cancellous bone was notably soft as it was in the femoral neck. The 54 pinnacle cup was chosen and a gradually impacted and this fully seated an excellent Press-Fit a single screw placed in the ilium for further fixation and the 36 inner diameter liner was fully seated. The acetabulum was placed the scopic guidance as with the reaming and placed at 40? of abduction and appropriate anteversion. We then carefully removed osteophytes circumferentially. There was extensive remodeling of the ilium such that the lateral wall of the ilium had remodeled accumulating bone for support of the laterally subluxed femoral head apparently and this was carefully Pare down along with the posterior osteophyte bone so that we would be able to have clearance for the greater trochanter to mobilize anteriorly and after this was performed the leg was externally rotated extended with the table hook and we were able to mobilize the proximal femur and she is close to them now. We had incise the interval between conjoined tendon and piriformis which allowed the tear was flipped and the conjoined tendon to recess. The labeling machine operator externus was visualized and remained intact. The femur was broached up to a size 7 then we trialed and the +5 was appropriate with respect to leg length and offset but just a little bit tight. It did appear that we had achieved about 4 mm of lengthening. We calcar planed. There was torsional play with the 7 broach and we broached up to a size 8 which gave torsional stability. With the height increase of a mm and the offset increase of 2 mm going from the 7 to 8 we trialed with the 1.5 neck standard offset and this gave appropriate soft tissue tension and achieve lengthening of about 3 mm and I felt this was optimal. The 5mm neck was far too tight. Calcar planing was completed and we placed the size 8 Actis stem with standard offset neck without difficulty seated fully no cracks in the calcar. After trialing the 1.5 ceramic head was chosen and placed on the clean and dried trunnion hip reduced soft tissue tension confirmed to be appropriate. The wound had been irrigated multiple times with Ancef solution 2 additional g of Ancef 1 g of TXA given. Anterior capsular flap allowed to rest insight 2. The fascia over the tensor press on her reapproximated with 1. Vicryl. Drain placed deep in the subcu skin closed with 2 subcutaneous Vicryl and glue EBL was 600 cc total. Cell Saver estimated collection of 525 cc of blood at from which 250 cc of packed washed cells were obtained and transfuse the patient before leaving the OR. During the procedure, at initiation of anesthesia, his heart rate increased to 156. He has known atrial fibrillation and this was due believed to be a rapid ventricular response. He was given 3 mg of IV metoprolol and this brought him down to the 90s and 30 minutes later it and increased again he was given 2 more mg of metoprolol IV and his heart rate was stable throughout the remainder of the procedure. We will have him on a monitor bed postop and we will consult Dr. Isaac for recommendations on starting him on a beta rickey at home if he feels appropriate. [facility] Billing Surgery - Charge Forward: Surgery Billing (Right total hip replacement)
--- NOTE | 2024-12-31 11:28 | PM.OP ---
Procedure Note - Brief Procedure Note - Brief Date of procedure: 12/31/24 oa right hip Procedure performed: Right anterior total hip arthroplasty Surgeon: AILYN Alfaro Findings: 74-year-old male who underwent right anterior total hip arthroplasty on 12/31. I was involved in the procedure including positioning patient on the OR table in 1st assisting through the time surgery. Total time spent was 3-1/2 hours
[2024-12-31] MEDS: fentaNYL CITRATE INJ (*CRX) 100 MCG/2 ML VIAL 25 MCG IV PUSH ×4 (11:45→12:02)
--- NOTE | 2024-12-31 12:40 | P.CONIM_ITS ---
Assessment and Plan Assessment and plan (1) Osteoarthritis of right hip: Code(s): M16.11 - Unilateral primary osteoarthritis, right hip Status: Acute Assessment and Plan: Postoperative day 0 status post right total hip arthroplasty. Wound care, pain control, and DVT prophylaxis deferred to primary service. (2) Atrial fibrillation: Onset Date: 2020 Code(s): I48.91 - Unspecified atrial fibrillation Status: Acute Assessment and Plan: Initially diagnosed in 2020, may be persistent though he has no symptoms. Patient has refused anticoagulation due to concerns for side effects and bleeding. He is open to taking aspirin 325 mg daily in lieu of anticoagulation. Dr. Isaac recommends low-dose metoprolol which will be started tomorrow. Plan Thank you for allowing us to participate in this patient's care. Please do not hesitate to contact us with any questions. HPI Date of Consult Consult date: 12/31/24 Requesting Physician: Hieu Lujan MD Primary Care Provider: Jermaine Newell APRN Consult Narrative Reason for consult: Medical management. Narrative: This is a pleasant 74-year-old male with history of osteoarthritis, transient ischemic attack, and atrial fibrillation for which he has refused anticoagulation whom the hospitalist service has been consulted for help ma naging his medical conditions postoperatively. He presented today for elective right total hip arthroplasty due to ongoing pain despite conservative outpatient treatment. Surgery was performed under general anesthesia with no immediate complications documented. He received metoprolol tartrate 5 mg IV during the procedure for rapid atrial fibrillation with rates up to 156 beats per minute. Postoperatively he is doing well and has minimal discomfort. He was able to eat dinner but had some nausea afterwards. Regarding his heart rate, he has no sensations of racing heart or palpitations and never has. He denies fever, chest pain, shortness of breath, and vomiting. Review of Systems Review of Systems: 12 systems were reviewed and are negativ e except for as per HPI. [facility] Past Medical History Medical History (Updated 12/31/24 @ 20:24 by Madelyn Valiente PA-C) Osteoarthritis Hypertension patient reports having white coat hypertension, not on antihypertensive Atrial fibrillation (2020) refuses anticoagulation Transient ischemic attack Broken clavicle Surgical History Surgical History (Updated 12/31/24 @ 20:24 by Madelyn Valiente PA-C) History of total right hip arthroplasty (12/31/24) History of tonsillectomy Family History Family History Father Family history of Alzheimer's disease Mother No problems noted. Sibling No problems noted. Social History Social History Social History: Surrogate medical decision maker: Agustinamalathi Monique, spouse. Code status: Full code. Smoking status: Never smoker Second hand tobacco smoke exposure: No Alcohol intake: current Drinks per week: 1 Alcohol use details: Beer Substance use: never Substance use type: does not use Last use: 12/09/24 Do You Feel Safe in your Home?: Yes Lack of Transportation: No Lack of Food: Never True Current Housing: I Have Housing Concerned About Future Housing: No Difficulty Paying Gas/Electric Bills: No Difficulty Paying for Meds: No Currently Unemployed: No Education: Don't Know Difficulty w/ Childcare or Family Care: No Living arrangements: with family Additional living arrangements comments: Lives with spouse in [place]. Occupation/Education: retired Additional occupation/education comments: [place] Spiritual care concerns: No Meds Home Medications and Allergies Home Medications ?Medication ?Instructions ?Recorded ?Confirmed ?Type ascorbic acid (vitamin C) 500 mg 500 mg PO DAILY 12/10/24 12/31/24 History tablet (C-500) krill oil 500 mg capsule 350 mg PO DAILY 12/10/24 12/31/24 History magnesium glycinate 100 mg (as 400 mg PO DAILY 12/10/24 12/31/24 History glycinate) tablet (Mag Glycinate) multivitamin 1 tablet PO DAILY 12/10/24 12/31/24 History red beet 500 mg capsule 1,100 mg PO DAILY 12/10/24 12/31/24 History turmeric 400 mg capsule 500 mg PO DAILY 12/10/24 12/31/24 History zinc 50 mg capsule 50 mg PO DAILY 12/10/24 12/31/24 History Allergies Allergy/AdvReac Type Severity Reaction Status Date / Time No Known Allergies Allergy Verified 12/31/24 06:18 Vital Signs Vital Signs - 24 hr 12/31/24 06:15 12/31/24 11:22 12/31/24 11:30 Temperature 97.7 F 97.1 F L Pulse Rate 90 78 83 Respiratory Rate 18 16 10 L Blood Pressure 164/89 H 90/61 L 99/61 L Pulse Oximetry 100 99 99 Oxygen Delivery Room Air Simple Face Mask Simple Face Mask Oxygen Flow Rate 8 8 12/31/24 11:36 12/31/24 11:45 12/31/24 11:58 Temperature Pulse Rate 83 Respiratory Rate 12 Blood Pressure 116/93 H Pulse Oximetry 100 100 100 Oxygen Delivery Simple Face Mask Simple Face Mask Room Air Oxygen Flow Rate 8 8 12/31/24 12:00 12/31/24 12:15 Temperature Pulse Rate 87 78 Respiratory Rate 16 12 Blood Pressure 132/79 134/67 Pulse Oximetry 98 98 Oxygen Delivery Room Air Room Air Oxygen Flow Rate Exam Narrative: General: Well-developed, nontoxic-appearing male sitting up in bed in no acute distress. Weight: 72.9 kg. BMI: 24.4. HEENT: PERRL, EOMI. Sclera anicteric. Oral mucosa moist. Neck: Supple. Respiratory: Lungs are clear to auscultation bilaterally. Cardiovascular: Irregularly irregular rate and rhythm. Gastrointestinal: Abdomen is soft, nontender, and nondistended with positive bowel sounds. Skin: Warm and dry. No rash or lesions on limited exam. Extremities: No cyanosis, clubbing, or edema. Radial and pedal pulses intact. Musculoskeletal: Right hip dressing is clean, dry, and intact. Hemovac in place. Neurological: Alert. Cranial nerves 2-12 grossly intact. No gross focal deficits to casual conversation. Psychiatric: Pleasant and cooperative with normal mood and affect. Judgment and insight intact. Hospitalist MIPS Advance Care Plan I have confirmed that the patient's Advanced Care Plan is present, code status is documented, or surrogate decision maker is listed in patient medical record.: Yes Medication Reconciliation I have utilized all available resources to obtain, update and review the patients current medications (includes all prescriptions, OTC, herbals, cannabis, and nutritional supplements).: Yes
[2024-12-31] MEDS: ACETAMINOPHEN 325 MG TABLET 650 MG PO ×4 (12:57→23:53)
[2024-12-31] MEDS: oxyCODONE HCL (*CRX) 5 MG TAB IR PO (12:59)
--- NOTE | 2024-12-31 13:11 | ADMGEN ---
This patient, Ervin Monique, was admitted to [facility] Surg Room 330-02. Patient/family oriented to hospital policies and general routines including ID bracelet, bed and alarms, visiting hours, pain management, procedures, bathroom and other care routines, personal items, smoking policy, room service/diet, and visiting hours. Information on how to activate the Rapid Response Team has been discussed. Patient/Family are encouraged to report perceived risks to care and to ask questions if they do not understand what they are told or what they should do. Report from Tea.
--- NOTE | 2024-12-31 16:15 | PM.CNCAR ---
Assessment and Plan Assessment and plan (1) Atrial fibrillation: Onset Date: 2020 Code(s): I48.91 - Unspecified atrial fibrillation Status: Acute Assessment and Plan: Asymptomatic. [id number] 2-3. Refuses anticoagulation. He is started on low dose Eliquis for DVT prophylaxis post op. Rate is high normal. Start Metoprolol Succinate 25 mg daily. No further cardiac workup is needed. Will sign off, please call with any questions. Have him keep his regular cardiology f/u with me. History of Present Illness History of Present Illness Consult date/time: 12/31/24 16:15 Reason For Visit: oa right hip Narrative: 74 yr old man who is my regular cardiology patient and a patient of Dr. Hall presents for elective hip surgery today. He has a history of atrial fibrillation, TIA in 2012 with right sided numbness and slurred speech without recurrence, borderline hypertension. During surgery it was noted his HR was fast and was given Metoprolol IV which controlled his HR. Currently does not have any chest pain or sob. Denies chest pain, sob, orthopnea, PND, edema, dizziness, palpitations. He is able to walk with a cane down a long hallway and limited by hip pains but could be DICK also. Cardiovascular Procedures Electrophysiology:: 10/04/24 EKG: Atrial fibrillation at 85 bpm. 12/22/20 EKG: Atrial fibrillation, PVC. 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 11/08/24 Lexiscan myoview: Negative. Review of Systems Review of Systems: All systems reviewed & are unremarkable except as noted in HPI and below Constitutional: Constitutional: Reports as per HPI, Denies chills and Denies fever(s) Cardiovascular: Cardiovascular: Reports as per HPI, Denies chest pain and Denies irregular heart rhythm Respiratory: Respiratory: Reports as per HPI Gastrointestinal: Gastrointestinal: Reports as per HPI and Denies abdominal pain Genitourinary: Genitourinary: Reports as per HPI and Denies dysuria Musculoskeletal: Musculoskeletal: Reports as per HPI and Reports arthralgias Neurologic: Reports as per HPI, Denies dizziness and Denies syncope [facility] Past Medical History Medical History (Updated 12/31/24 @ 14:18 by Madelyn Valiente PA-C) Osteoarthritis Hypertension Atrial fibrillation (2020) refuses anticoagulation Transient ischemic attack Broken clavicle Surgical History Surgical History (Updated 12/31/24 @ 14:15 by Madelyn Valiente PA-C) History of tonsillectomy Family History Family History Father Family history of Alzheimer's disease Mother No problems noted. Sibling No problems noted. Social History Social History (Updated 12/31/24 @ 14:18 by Madelyn Valiente PA-C) Social History: Surrogate medical decision maker: Agustina Eneida, spouse. Code status: Full code. Smoking status: Never smoker Second hand tobacco smoke exposure: No Alcohol intake: current Drinks per week: 1 Alcohol use details: Beer Substance use: never Substance use type: does not use Last use: 12/09/24 Do You Feel Safe in your Home?: Yes Lack of Transportation: No Lack of Food: Never True Current Housing: I Have Housing Concerned About Future Housing: No Difficulty Paying Gas/Electric Bills: No Difficulty Paying for Meds: No Currently Unemployed: No Education: Don't Know Difficulty w/ Childcare or Family Care: No Living arrangements: with family Additional living arrangements comments: Lives with spouse in [place]. Occupation/Education: retired Additional occupation/education comments: [employer] care concerns: No Meds Home Medications and Allergies Home Medications ?Medication ?Instructions ?Recorded ?Confirmed ?Type ascorbic acid (vitamin C) 500 mg 500 mg PO DAILY 12/10/24 12/31/24 History tablet (C-500) krill oil 500 mg capsule 350 mg PO DAILY 12/10/24 12/31/24 History magnesium glycinate 100 mg (as 400 mg PO DAILY 12/10/24 12/31/24 History glycinate) tablet (Mag Glycinate) multivitamin 1 tablet PO DAILY 12/10/24 12/31/24 History red beet 500 mg capsule 1,100 mg PO DAILY 12/10/24 12/31/24 History turmeric 400 mg capsule 500 mg PO DAILY 12/10/24 12/31/24 History zinc 50 mg capsule 50 mg PO DAILY 12/10/24 12/31/24 History Allergies Allergy/AdvReac Type Severity Reaction Status Date / Time No Known Allergies Allergy Verified 12/31/24 06:18 Vital Signs Vital Signs - 24 hr 12/31/24 06:15 12/31/24 11:22 12/31/24 11:30 Temperature 97.7 F 97.1 F L Pulse Rate 90 78 83 Respiratory Rate 18 16 10 L Blood Pressure 164/89 H 90/61 L 99/61 L Pulse Oximetry 100 99 99 Oxygen Delivery Room Air Simple Face Mask Simple Face Mask Oxygen Flow Rate 8 8 12/31/24 11:36 12/31/24 11:45 12/31/24 11:58 Temperature Pulse Rate 83 Respiratory Rate 12 Blood Pressure 116/93 H Pulse Oximetry 100 100 100 Oxygen Delivery Simple Face Mask Simple Face Mask Room Air Oxygen Flow Rate 8 8 12/31/24 12:00 12/31/24 12:15 12/31/24 12:38 Temperature 96.6 F L Pulse Rate 87 78 80 Respiratory Rate 16 12 13 Blood Pressure 132/79 134/67 130/109 H Pulse Oximetry 98 98 96 Oxygen Delivery Room Air Room Air Oxygen Flow Rate 12/31/24 13:08 12/31/24 13:42 12/31/24 14:18 Temperature 96.6 F L Pulse Rate 103 H Respiratory Rate 13 Blood Pressure 167/88 H Pulse Oximetry 100 99 Oxygen Delivery Room Air Room Air Oxygen Flow Rate Exam Const: General: cooperative, healthy appearing and comfortable Resp: Auscultation: clear to auscultation bilaterally, no crackles, no rales, no rhonchi and no wheezes Cardio: Rate: regular rate Rhythm: abnormal rhythm Peripheral pulses: dorsalis pedis present GI: GI Palp: No abdominal tenderness and Yes Soft to palpation Neuro: General: oriented to person, oriented to place and oriented to time Extrem: Right lower extremity: no edema Left lower extremity: no edema Results Labs and Meds Lab results: Intake and Output 12/31/24 12/31/24 12/31/24 07:59 15:59 23:59 Intake Total 500 Output Total 15 Balance 485 Intake: IV 500 Lactated Ringers 1,000 ml @ 30 400 mls/hr IV CONT .Q24H EMILY Rx#: [id number] ceFAZolin 2 GM/D5W 50 ML 2 gm 100 In 50 ml @ 100 mls/hr IVPB Q8H EMILY Rx#:[id number] Output: Drain 15 Hemovac Right Hip(s) 15 Patient Weight 12/31/24 23:59 Weight 72.9 kg
[2024-12-31] MEDS: SENNA/DOCUSATE SODIUM TABLET 2 TAB PO (17:33)
[2024-12-31] MEDS: FAMOTIDINE 20 MG TABLET PO (20:31)
[2025-01-01] VITALS: PULSE 84
[2025-01-01 02:08] VITALS: BP 109/68; PULSE 92; RESP 16; TEMP 36.6; O2SAT 96
[2025-01-01 04:00] VITALS: PULSE 82
[2025-01-01 05:33] VITALS: BP 109/74; PULSE 72; RESP 16; TEMP 36.2; O2SAT 100
[2025-01-01] MEDS: ACETAMINOPHEN 325 MG TABLET 650 MG PO ×2 (05:35→07:41)
[2025-01-01] MEDS: ceFAZolin 2 GM/D5W 50 ML 2 GM/50 ML BAG IVPB (05:59)
[2025-01-01 06:18] LABS: Basophils Percent Auto 0.2 % (0.2-1.2); Eosinophils Percent Auto 0.1 % (0-4.4); Hematocrit 41.1 % (42.0-52.0); Hemoglobin 13.5 g/dL (14.0-18.0); Immature Granulocyte Absolute 0.12 K/mm3 (0.00-0.031); Immature Granulocyte Percent A 0.6 % (0-0.5); Lymphocytes Absolute Auto 1.41 K/mm3 (0.9-3.2); Lymphocytes Percent Auto 7.4 % (18.3-44.2); Mean Corpuscular HGB Conc 32.8 g/dl (32-36); Mean Corpuscular Hemoglobin 31.5 pg (26-34); Mean Corpuscular Volume 95.8 fl (80-100); Mean Platelet Volume 11.5 fl (7.4-10.4); Monocytes Absolute Auto 2.2 K/mm3 (0.1-0.6); Monocytes Percent Auto 11.3 % (2.6-8.5); Neutrophils Absolute Auto 15.2 K/mm3 (1.3-6.7); Neutrophils Percent Auto 80.4 % (45.5-73.1); Platelet Count Result 212 k/mm3 (150-375); Red Blood Count 4.29 M/mm3 (4.6-6.20); Red Cell Distribution Width 14.2 % (11.5-14.5)
[2025-01-01 06:26] LABS: Anion Gap 8 mmol/L (4-12); Blood Urea Nitrogen 21 mg/dL (9-20); Calcium 8.3 mg/dL (8.4-10.2); Carbon Dioxide 24 mmol/L (22-30); Chloride 106 mmol/L (98-107); Estimated CRCL calculation 58 ml/min; Estimated Glomerular Filt Rate > 60; Glucose 115 mg/dL (65-110); Sodium 138 mmol/L (137-145)
[2025-01-01] MEDS: VANCOMYCIN 1,000 MG/NS 250 ML 1,000 MG/250 ML BAG 250 MG IVPB (06:38)
[2025-01-01] MEDS: APIXABAN 2.5 MG TABLET PO (07:41)
[2025-01-01] MEDS: SENNA/DOCUSATE SODIUM TABLET 2 TAB PO (07:41)
[2025-01-01] MEDS: METOPROLOL SUCCINATE EXT REL 25 MG TABCR PO (07:41)
[2025-01-01] MEDS: FAMOTIDINE 20 MG TABLET PO (07:42)
[2025-01-01] MEDS: CELECOXIB 200 MG CAPSULE PO (07:42)
[2025-01-01 08:00] VITALS: PULSE 87
--- NOTE | 2025-01-01 08:45 | PM.PNORT ---
Progress Note: A&P Assessment and Plan (1) History of right hip replacement: Code(s): Z96.641 - Presence of right artificial hip joint Status: Acute Assessment and Plan: Patient is doing very well this morning. He underwent right total hip arthroplasty yesterday. He has been up walking using the walker weight-bearing as tolerated going to the bathroom several times last night. He is going to be working with physical therapy today. Dr. Isaac saw him and ordered metoprolol 25 mg for at home. Patient had rapid ventricular response to his atrial fibrillation seen at time of surgery. He has been afebrile with stable vital signs today. Heart rate this morning was 82 and 72. His laboratory studies show mild acute blood loss anemia hemoglobin 13.5. White count is elevated 19.0 consistent with reactive elevation. BUN is 21. Creatinine 0.94. His wound looks fine. He is neurologically intact the right leg. He is alert and oriented. He feels comfortable to be discharged home today after morning therapy. Precautions at home were discussed in detail. Subjective Subjective Date/Time Seen: 01/01/25 08:45 Objective Data Vital Signs Vital Signs: Vital Signs - 24 hr 12/31/24 11:22 12/31/24 11:30 12/31/24 11:36 Temperature 36.2 C L Pulse Rate 78 83 Respiratory Rate 16 10 L Blood Pressure 90/61 L 99/61 L Pulse Oximetry 99 99 100 Oxygen Delivery Simple Face Mask Simple Face Mask Simple Face Mask Oxygen Flow Rate 8 8 8 12/31/24 11:45 12/31/24 11:58 12/31/24 12:00 Temperature Pulse Rate 83 87 Respiratory Rate 12 16 Blood Pressure 116/93 H 132/79 Pulse Oximetry 100 100 98 Oxygen Delivery Simple Face Mask Room Air Room Air Oxygen Flow Rate 8 12/31/24 12:15 12/31/24 12:38 12/31/24 13:08 Temperature 35.9 C L 35.9 C L Pulse Rate 78 80 103 H Respiratory Rate 12 13 13 Blood Pressure 134/67 130/109 H 167/88 H Pulse Oximetry 98 96 100 Oxygen Delivery Room Air Oxygen Flow Rate 12/31/24 13:42 12/31/24 14:18 12/31/24 16:00 Temperature Pulse Rate 96 Respiratory Rate Blood Pressure Pulse Oximetry 99 Oxygen Delivery Room Air Room Air Oxygen Flow Rate 12/31/24 18:08 04/14/25 20:00 12/31/24 20:00 Temperature 36.0 C L Pulse Rate 99 95 Respiratory Rate 16 Blood Pressure 124/84 Pulse Oximetry 100 Oxygen Delivery Room Air Oxygen Flow Rate 12/31/24 22:08 01/01/25 00:00 01/01/25 02:08 Temperature 36.7 C 36.6 C Pulse Rate 99 84 92 Respiratory Rate 18 16 Blood Pressure 132/76 109/68 Pulse Oximetry 99 96 Oxygen Delivery Oxygen Flow Rate 01/01/25 04:00 01/01/25 05:33 Temperature 36.2 C L Pulse Rate 82 72 Respiratory Rate 16 Blood Pressure 109/74 Pulse Oximetry 100 Oxygen Delivery Oxygen Flow Rate Intake/Output Intake/Output: Intake & Output 12/29/24 12/30/24 12/31/24 01/01/25 23:59 23:59 23:59 23:59 Intake Total 1730 400 Output Total 15 70 Balance 1715 330 Meds/Results Medications: Active Medications Generic Name Dose Route Start Last Admin [facility] Reason Stop Dose Admin Acetaminophen 650 mg 12/31/24 13:00 01/01/25 07:41 Acetaminophen 325 Mg Tablet PO 650 mg Q4H EMILY Administration Apixaban 2.5 mg 01/01/25 09:00 01/01/25 07:41 Apixaban 2.5 Mg Tablet PO 2.5 mg Q12HR EMILY Administration Cefdinir 300 mg 01/01/25 12:00 Cefdinir 300 Mg Capsule PO Q12HR EMILY Celecoxib 200 mg 01/01/25 09:00 01/01/25 07:42 Celecoxib 200 Mg Capsule PO 200 mg DAILY EMILY Administration Famotidine 20 mg 12/31/24 21:00 01/01/25 07:42 Famotidine 20 Mg Tablet PO 20 mg Q12HR EMILY Administration Metoprolol Succinate 25 mg 01/01/25 09:00 01/01/25 07:41 Metoprolol Succinate Ext Rel 25 Mg Tabcr PO 25 mg QAM EMILY Administration Morphine Sulfate 2 mg 12/31/24 12:23 Morphine Sulfate (*Crx) 2 Mg/Ml Inj IV PUSH Q2H PRN Breakthrough Pain Rated 4-6 or NPO Naloxone HCl 0.1 mg 12/31/24 12:23 Naloxone Hcl 0.4 Mg/Ml Vial IV PUSH Q2M PRN Opiate Reversal Ondansetron HCl 4 mg 12/31/24 12:23 Ondansetron Inj 4 Mg/2 Ml Vial IV PUSH Q4H PRN Nausea And Vomiting Oxycodone HCl 5 mg 12/31/24 12:23 01/01/25 07:42 Oxycodone Hcl (*Crx) 5 Mg Tab Ir PO Not Given Q4H EMILY Oxycodone HCl 5 mg 12/31/24 12:23 Oxycodone Hcl (*Crx) 5 Mg Tab Ir PO Q4H PRN Pain Rated 7-10 Polyethylene Glycol 17 gm 01/01/25 09:00 01/01/25 07:42 Polyethylene Glycol 3350 17 Gm Powd.Pack PO Not Given QAM [facility] Senna/Docusate Sodium 2 tab 12/31/24 17:00 01/01/25 07:41 Senna/Docusate Sodium Tablet PO 2 tab BID EMILY Administration Radiology Results: ITS Impressions Hip/Pelvis X-Ray 12/31/24 14:08 IMPRESSION: 1. Right total hip arthroplasty in near-anatomic alignment with no acute osseous abnormality. 2. Advanced left hip osteoarthritis. Labs Labs: Laboratory Results - last 24 hr 01/01/25 05:51 WBC 19.0 H RBC 4.29 L Hgb 13.5 L Hct 41.1 L MCV 95.8 MCH 31.5 MCHC 32.8 RDW 14.2 Plt Count 212 MPV 11.5 H Immature Gran % (Auto) 0.6 H Neut % (Auto) 80.4 H Lymph % (Auto) 7.4 L [place] % (Auto) 11.3 H Eos % (Auto) 0.1 Baso % (Auto) 0.2 Lymph # (Auto) 1.41 [place] # (Auto) 2.2 H Eos # (Auto) 0.0 Baso # (Auto) 0.0 Abs Immat Gran (auto) 0.12 H Absolute Neuts (auto) 15.2 H Absolute Nucleated RBC 0.000 Nucleated RBC % 0.0 Sodium 138 Potassium 4.0 Chloride 106 Carbon Dioxide 24 Anion Gap 8 BUN 21 H Creatinine 0.94 Estim Creat Clear Calc 58 Estimated GFR > 60 Glucose 115 H Calcium 8.3 L
--- NOTE | 2025-01-01 11:13 | PM.IMPN ---
Subjective Date/time seen: 01/01/25 11:13 Objective Data Vital Signs Vital Signs: Vital Signs - 24 hr 12/31/24 11:22 12/31/24 11:30 12/31/24 11:36 Temperature 36.2 C L Pulse Rate 78 83 Respiratory Rate 16 10 L Blood Pressure 90/61 L 99/61 L Pulse Oximetry 99 99 100 Oxygen Delivery Simple Face Mask Simple Face Mask Simple Face Mask Oxygen Flow Rate 8 8 8 12/31/24 11:45 12/31/24 11:58 12/31/24 12:00 Temperature Pulse Rate 83 87 Respiratory Rate 12 16 Blood Pressure 116/93 H 132/79 Pulse Oximetry 100 100 98 Oxygen Delivery Simple Face Mask Room Air Room Air Oxygen Flow Rate 8 12/31/24 12:15 12/31/24 12:38 12/31/24 13:08 Temperature 35.9 C L 35.9 C L Pulse Rate 78 80 103 H Respiratory Rate 12 13 13 Blood Pressure 134/67 130/109 H 167/88 H Pulse Oximetry 98 96 100 Oxygen Delivery Room Air Oxygen Flow Rate 12/31/24 13:42 12/31/24 14:18 12/31/24 16:00 Temperature Pulse Rate 96 Respiratory Rate Blood Pressure Pulse Oximetry 99 Oxygen Delivery Room Air Room Air Oxygen Flow Rate 12/31/24 18:08 12/31/24 20:00 12/31/24 20:00 Temperature 36.0 C L Pulse Rate 99 95 Respiratory Rate 16 Blood Pressure 124/84 Pulse Oximetry 100 Oxygen Delivery Room Air Oxygen Flow Rate 12/31/24 22:08 01/01/25 00:00 01/01/25 02:08 Temperature 36.7 C 36.6 C Pulse Rate 99 84 92 Respiratory Rate 18 16 Blood Pressure 132/76 109/68 Pulse Oximetry 99 96 Oxygen Delivery Oxygen Flow Rate 01/01/25 04:00 01/01/25 05:33 01/01/25 08:00 Temperature 36.2 C L Pulse Rate 82 72 Respiratory Rate 16 Blood Pressure 109/74 Pulse Oximetry 100 Oxygen Delivery Room Air Oxygen Flow Rate 01/01/25 08:00 Temperature Pulse Rate 87 Respiratory Rate Blood Pressure Pulse Oximetry Oxygen Delivery Oxygen Flow Rate Intake/Output Intake/Output: Intake & Output 12/29/24 12/30/24 12/31/24 01/01/25 23:59 23:59 23:59 23:59 Intake Total 1738 640 Output Total 15 70 Balance 1715 570 Meds/Results Radiology Results: ITS Impressions Hip/Pelvis X-Ray 12/31/24 14:08 IMPRESSION: 1. Right total hip arthroplasty in near-anatomic alignment with no acute osseous abnormality. 2. Advanced left hip osteoarthritis. Labs Labs: Laboratory Results - last 24 hr 01/01/25 05:51 WBC 19.0 H RBC 4.29 L Hgb 13.5 L Hct 41.1 L MCV 95.8 MCH 31.5 MCHC 32.8 RDW 14.2 Plt Count 212 MPV 11.5 H Immature Gran % (Auto) 0.6 H Neut % (Auto) 80.4 H Lymph % (Auto) 7.4 L [place] % (Auto) 11.3 H Eos % (Auto) 0.1 Baso % (Auto) 0.2 Lymph # (Auto) 1.41 [place] # (Auto) 2.2 H Eos # (Auto) 0.0 Baso # (Auto) 0.0 Abs Immat Gran (auto) 0.12 H Absolute Neuts (auto) 15.2 H Absolute Nucleated RBC 0.000 Nucleated RBC % 0.0 Sodium 138 Potassium 4.0 Chloride 106 Carbon Dioxide 24 Anion Gap 8 BUN 21 H Creatinine 0.94 Estim Creat Clear Calc 58 Estimated GFR > 60 Glucose 115 H Calcium 8.3 L
== END 2025-01-01 10:40 | disposition home or self-care (01) ==
LOC: ANHSURGERY 06:30 → ANH3MEDSUR 12:25
PROVIDERS: Physician Assistant Surgical; PCP Nurse Practitioner; Visit Provider Orthopaedic Surgery
PROC: (CPT 27130; principal; 2024-12-31 07:30)
DX: M16.11 Unilateral primary osteoarthritis, right hip (principal); M25.751 Osteophyte, right hip; I10 Essential (primary) hypertension; I48.91 Unspecified atrial fibrillation; Z98.890 Other specified postprocedural states; Z86.73 Personal history of transient ischemic attack (TIA), and cerebral infarction without residual deficits
CPT/HCPCS: 27130; 36415; 73501; 80048; 85025; 86850; 86900; 86901; 97110; 97116; 97165; 97530; 97535; 99199; A9270; C1776; J0171; J0690; J1100; J1171; J1885; J2003; J2250; J2270; J2371; J2405; J2704; J2795; J3010; J3370; J7120

== ENCOUNTER 2025-04-01 12:54 | Outpatient (CLI) | payer MEDICARE, SELFPAY ==
--- OUTSIDE RECORDS SUMMARY | 2025-04-01 13:03 | XMS_ITS | Clinical Summary ---
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
--- OUTSIDE RECORDS SUMMARY | 2025-04-01 13:03 | XMS_ITS | Referral Summary ---
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
[2025-04-01 14:06] LABS: Hematocrit 47.4 % (42.0-52.0); Hemoglobin 15.4 g/dL (14.0-18.0); Immature Granulocyte Percent A 0.3 % (0-0.5); Lymphocytes Absolute Auto 1.99 K/mm3 (0.9-3.2); Mean Corpuscular HGB Conc 32.5 g/dl (32-36); Mean Corpuscular Hemoglobin 30.8 pg (26-34); Mean Corpuscular Volume 94.8 fl (80-100); Nucleated Red Blood Cells Absolute Auto 0.000 K/mm3 (0.0-0.012); Nucleated Red Blood Cells Perc 0.0 % (0.0-0.2); Platelet Count Result 247 k/mm3 (150-375); Red Blood Count 5.00 M/mm3 (4.6-6.20); White Blood Count 7.7 K/mm3 (4.5-10.0)
[2025-04-01 14:38] LABS: Albumin Level 4.1 g/dL (3.5-5.1); Anion Gap 9 mmol/L (4-12); Blood Urea Nitrogen 16 mg/dL (9-20); Calcium 9.1 mg/dL (8.4-10.2); Carbon Dioxide 24 mmol/L (22-30); Chloride 106 mmol/L (98-107); Estimated Glomerular Filt Rate > 60; Glucose 79 mg/dL (65-110); Hemoglobin A1C 5.4 % (<5.7); Potassium 4.2 mmol/L (3.4-5.0); Sodium 139 mmol/L (137-145)
== END 2025-04-01 12:55 | disposition home or self-care (01) ==
PROVIDERS: PCP Internal Medicine; Visit Provider Orthopaedic Surgery
DX: Z01.818 Encounter for other preprocedural examination (principal); M16.12 Unilateral primary osteoarthritis, left hip
CPT/HCPCS: 80048; 80307; 82040; 83036; 85025; 87081

== ENCOUNTER 2025-04-22 01:35 | Day surgery (SDC) | payer MEDICARE, SELFPAY ==
--- NOTE | 2025-04-01 12:53 | PC.NURSE ---
Report to the Outpatient Waiting Room, entrance under the green pavilion located off [facility], at time __6 AM on date ___04/22/25____. Planned Procedure Time: _7:30 AM .? Time changes happen often and if your time is changed the preop area will call you the afternoon before. - You and your visitor will be asked to self-screen and do not enter if you have any COVID symptoms. Please call surgeon if you need to reschedule. - A mask is optional within the hospital at this time. Patients may have clear liquids (water, carbonated beverages, clear teas, apple juice) until 3 hours prior to surgery ( 4:30 AM ) with a maximum of 20 ounces. - No food from midnight until time of surgery and no smoking, or chewing tobacco (or any form of nicotine). No chewing gum, candy or mints. Take only the following medications with a SIP of water on the morning of surgery: NONE DO NOT STOP ANY OF YOUR OTHER PRESCRIPTION MEDICATIONS PRIOR TO SURGERY EXCEPT THE FOLLOWING Hold all vitamins and supplements for 3 days per anesthesiologist.LAST DOSE 04/18/25 Medications to discontinue per physician ASPIRIN PER DR ZARATE NEXT APPT 04/03/25 Please no make-up, nail azeri, hairspray, perfume, deodorant, or body powder the day of surgery.? No jewelry (including any body piercings) or valuables the day of surgery, leave them at home.? Please take a shower or bath the night before, or the morning of, surgery with an antibacterial soap.? Wear comfortable, loose fitting clothing.? Children are encouraged to wear pajamas. - Jewelry must be removed prior to entering the operating room.? Rings and piercings that are not removed may be cut off. - The hospital will not accept responsibility for valuables.? - Please leave all valuables, including medications, at home the day of surgery. If you are going home after surgery, a licensed taxi truck driver must drive you home.? - NO public transportation without another adult if you receive anesthesia. - We recommend that an adult stay with you for 24 hours following discharge. - We also recommend that you do not drive, make important decision, drink alcoholic beverages, or take any drugs that were not prescribed by your health care provider for at least 24 hours after your discharge time. Follow any additional instructions given to you from your surgeon. VERBAL AND WRITTEN instructions given to _PATIENT_AND WIFE and asked if any additional questions and then verbalized understanding. Patient advised to call surgeon office or pre surgery nurse liaison [phone] if any additional questions.
[2025-04-01 13:04] VITALS: BMI 25.3
[2025-04-01 13:54] VITALS: BP 150/89; PULSE 73; RESP 18; TEMP 36.7; O2SAT 100
--- NOTE | 2025-04-19 07:44 | PM.IMHP ---
H&P: HPI History of Present Illness Date/Time: 04/19/25 07:44 Chief Complaint: Left hip DJD Narrative: 75-year-old male who presents today for a left anterior total hip arthroplasty. He underwent right anterior total hip arthroplasty in November of this year. He had uneventful recovery and is very happy with his results. Patient has advanced osteoarthritis in the left hip. He has severe symptoms on a daily basis. At this point he feels he has recovered well from his right anterior hip and is ready proceed with the left. Review of Systems Review of Systems: All systems reviewed & are unremarkable except as noted in HPI and below PMFSH Past Medical History Medical History Osteoarthritis Hypertension patient reports having white coat hypertension, not on antihypertensive Atrial fibrillation (2020) refuses anticoagulation Transient ischemic attack Broken clavicle Surgical History Surgical History History of total right hip arthroplasty (12/31/24) History of tonsillectomy Family History Family History Father Family history of Alzheimer's disease Mother No problems noted. Sibling No problems noted. Social History Social History (Updated 04/03/25 @ 08:20 by Kaleigh Gomes [facility]) Social History: Surrogate medical decision maker: Agustina Monique, spouse. Code status: Full code. Smoking status: Never smoker Second hand tobacco smoke exposure: No Additional smoking assessment comments: DENIES ANY TOBACCO USE Alcohol intake: current Drinks per week: 1 Alcohol use details: Beer Substance use: never Substance use type: does not use Last use: 12/09/24 Do You Feel Safe in your Home?: Yes Lack of Transportation: No Lack of Food: Never True Current Housing: I Have Housing Concerned About Future Housing: No Difficulty Paying Gas/Electric Bills: No Difficulty Paying for Meds: No Currently Unemployed: No Education: High School Diploma/GED Difficulty w/ Childcare or Family Care: No Living arrangements: with family Additional living arrangements comments: Lives with spouse in [place]. Occupation/Education: retired Additional occupation/education comments: [employer] Spiritual care concerns: No Meds Home Medications and Allergies Home Medications ?Medication ?Instructions ?Recorded ?Confirmed ?Type aspirin 325 mg capsule 325 mg PO DAILY 04/01/25 04/04/25 History multivitamin (Daily Multi-Vitamin 1 tablet PO DAILY 04/01/25 04/04/25 History tablet) Allergies Allergy/AdvReac Type Severity Reaction Status Date / Time No Known Allergies Allergy Verified 04/03/25 07:31 Exam Narrative: 75-year-old male alert pleasant. He is 5 ft 8 and 162 lb BMI is 24.6. He walks with a cane and a moderate stiff hip gait. His left hip range of motion is from 0-50 degrees. At 50? of flexion there is a 40 degree oblique at [place] external rotation deformity and has 0 degree of flexion is 20?. Patient has no internal or external rotation otherwise. At he has normal abduction strength in the hip. Stinchfield maneuver is negative. 2+ dorsalis pedis and posterior tibial artery pulse palpable. Normal sensation to the left lower extremity. Skin around the hip and groin crease are normal. Resp: Auscultation: clear to auscultation bilaterally Cardio: Rate: regular rate Rhythm: regular rhythm Assessment and Plan Assessment and plan (1) Primary osteoarthritis of left hip: Code(s): M16.12 - Unilateral primary osteoarthritis, left hip Status: Acute Plan 75-year-old male who has advanced osteoarthritis left hip with significant stiffness and pain a daily basis. Again at this point patient feels he has recovered well from his right total hip and wished to proceed with the left. Surgical procedures well as risks and complications reviewed and all questions answered. Patient will avoid his aspirin 1 week prior to surgery as well as any other ibuprofen products. His nasal swab was negative. Hemoglobin 15.4 platelets 247. Chem panel was all within normal limits creatinine 0.90
[2025-04-22] VITALS (21 sets, daily range): BP systolic 91–149; BP diastolic 50–88; PULSE 76–118; RESP 8–18; TEMP 36.1–37.5; O2SAT 98–100
--- NOTE | ~2025-04-22 | XR_ITS ---
EXAMINATION: XR hip LT 1V w AP pelvis DATE: 04/22/2025 11:25 INDICATION: Left total hip arthroplasty TECHNIQUE: 2 views left hip FINDINGS: There is a left total hip arthroplasty in expected position. Subcutaneous gas with soft ti ssue swelling are consistent with recent surgery. There is also a right hip arthroplasty. IMPRESSION: 1. Recent left total hip arthroplasty. Reviewed, dictated and finalized at location A.
--- NOTE | ~2025-04-22 | XR_ITS ---
EXAMINATION: XR surgery orthopedic DATE: 04/22/2025 10:57 INDICATION: Left total hip arthroplasty TECHNIQUE: Single AP fluoroscopic image of the left hip was obtained during procedure performed by Dr Zen Lujan. Radiologist was not present for the imaging or procedure. The amount of fluoroscopy time u sed during this procedure was 0.7 minutes. Total DAP was 0.237 mGym^2. COMPARISON: 07/04/2025 FINDINGS: Interval placement of a left total hip arthroplasty which appears well seated in near-anatomic alignm ent on the single provided projection. The acetabular component is affixed with at least a single scr ew. No fractures. Expected soft tissue gas at the operative bed. IMPRESSION: 1. Expected appearance post left total hip arthroplasty. See procedure note for further detail. Reviewed, dictated and finalized at location A.
--- OUTSIDE RECORDS SUMMARY | 2025-04-22 01:37 | XMS_ITS | Clinical Summary ---
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
--- OUTSIDE RECORDS SUMMARY | 2025-04-22 01:37 | XMS_ITS | Referral Summary ---
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
[2025-04-22] MEDS: LACTATED RINGERS 1,000 ML 30 ML IV CONT ×2 (06:30→11:24)
[2025-04-22] MEDS: ACETAMINOPHEN 500 MG TABLET 1000 MG PO (07:00)
[2025-04-22] MEDS: TRANEXAMIC ACID 1,000MG/ISO100 1,000 MG/100 ML BAG 200 MG IVPB (07:00)
--- NOTE | 2025-04-22 07:14 | WPDHPUPDATE1 ---
History and Physical Update Update Date/Time: 04/22/25 07:14 History and Physical has been reviewed, including an updated exam of the patient. There are NO changes in the patient's condition. Risks, benefits, and alternatives have been discussed and questions answered. Patient agrees to proceed with procedure.
--- NOTE | 2025-04-22 07:22 | WPDANESEPPF ---
Anes - Initial Pre Proc Eval Procedure: Operation Date: 04/22/25 07:30 Proposed Procedures p Left Total Hip Arthroplasty Anterior Approach - Hieu Lujan MD Date/Time: 04/22/25 07:22 Surgeon: Hieu Lujan MD Pre Op Diagnosis: left hip oa Patient Data Age: 75 Gender: M Height: 1.73 m Weight: 75.6 kg Last Vital Signs Temp 98.0 F 04/01/25 13:54 Pulse 73 04/01/25 13:54 Resp 18 04/01/25 13:54 BP 150/89 H 04/01/25 13:54 Pulse Ox 100 04/01/25 13:54 O2 Del Method Room Air 04/01/25 13:54 Allergies Allergy/AdvReac Type Severity Reaction Status Date / Time No Known Allergies Allergy Verified 04/22/25 07:15 Home Medications ?Medication ?Instructions ?Recorded ?Confirmed ?Type aspirin 325 mg capsule 325 mg PO DAILY 04/01/25 04/22/25 History multivitamin (Daily Multi-Vitamin 1 tablet PO DAILY 04/01/25 04/22/25 History tablet) Patient hx anesthesia problems: none Family hx anesthesia problems: none Results Review: All pre-operative results and documents have been reviewed as part of the pre-operative evaluation. [facility] Past Medical History Medical History Osteoarthritis Hypertension patient reports having white coat hypertension, not on antihypertensive Atrial fibrillation (2020) refuses anticoagulation Transient ischemic attack Broken clavicle Surgical History Surgical History History of total right hip arthroplasty (12/31/24) History of tonsillectomy Family History Family History Father Family history of Alzheimer's disease Mother No problems noted. Sibling No problems noted. Social History Social History (Updated 04/03/25 @ 08:20 by Kaleigh Gomes CMA) Social History: Surrogate medical decision maker: Agustina Eneida, spouse. Code status: Full code. Smoking status: Never smoker Second hand tobacco smoke exposure: No Additional smoking assessment comments: DENIES ANY TOBACCO USE Alcohol intake: current Drinks per week: 1 Alcohol use details: Beer Substance use: never Substance use type: does not use Last use: 12/09/24 Do You Feel Safe in your Home?: Yes Lack of Transportation: No Lack of Food: Never True Current Housing: I Have Housing Concerned About Future Housing: No Difficulty Paying Gas/Electric Bills: No Difficulty Paying for Meds: No Currently Unemployed: No Education: High School Diploma/GED Difficulty w/ Childcare or Family Care: No Living arrangements: with family Additional living arrangements comments: Lives with spouse in [place]. Occupation/Education: retired Additional occupation/education comments: [employer] care concerns: No Anes - Eval Final PreProcedure Day of Procedure 04/22/25 07:22 Patient weight: normal Heart: irregular rhythm Lungs: clear to auscultation Airway: Mallampati scale Neurological: alert and oriented Last oral intake: >/= 8 hours ASA classification: III Emergent: no Anesthetic plan: proceed Anesthesia type and monitoring: general ETT and standard monitoring Results Review: All pre-operative results and documents have been reviewed as part of the pre-operative evaluation. Informed Consent: The patient's anesthetic plan and its attendant risks and benefits were discussed with the patient/family/POA. Questions were solicited and answers provided to the satisfaction of the patient/family/POA.
[2025-04-22] MEDS: VANCOMYCIN 1,250 MG/NS 250 ML 1,250 MG/250 ML BAG 166.67 MG IVPB (07:24)
[2025-04-22] MEDS: ceFAZolin 2 GM in SODIUM CHLORIDE 0.9% IV 50 ML 100 ML IVPB (07:31)
[2025-04-22] MEDS: TRANEXAMIC ACID 1,000 MG/10 ML AMPUL 1000 MG IV PUSH (10:51)
[2025-04-22] MEDS: KETOROLAC 15 MG/ML VIAL (*BKC) 7.5 MG IV PUSH ×3 (10:54→23:16)
[2025-04-22] MEDS: SODIUM CHLORIDE 0.9% IV 37.7 ML, MORPHINE SULFATE INJ (*CRX) 2 MG, ROPivacaine HCL 1% 2... INFILTRATE (10:56)
--- NOTE | 2025-04-22 11:14 | W.PM.PROC2 ---
Procedure Note - Detailed Date of Procedure 04/22/25 Pre-op Diagnosis left hip oa Post-op Diagnosis Same Procedure Performed Left total hip arthroplasty Surgeon Hieu Lujan MD Inside Barrel Lathe Operator Anabel Gruber Anesthesia General Description of Procedure Patient was brought to the operating room and general anesthesia was administered. He received 2 g of Ancef weight based vancomycin 1 g of TXA preoperatively. The feet were padded and boots applied and SCDs applied and running during the procedure. Patient was transferred to the [facility] table in the left hip prepped draped usual fashion. The a 10 cm longitudinal incision was made starting 3 cm lateral to the ASIS in the fascia over the tensor fascia any was exposed incised over the midportion elevated off the anterior 50% of the tensor fascia any muscle. Interval between TFL and rectus femoris developed. Crossing branches of ascending lateral femoral circumflex vessels were ligated with suture divided. The retractor was placed anteromedial to the hip joint capsule hip abducted internally rotated the gluteus minimus elevated off the lateral capsule. Inverted T capsulotomy was performed femoral neck osteotomy made according to preoperative templating. Femoral head was markedly enlarged and required peripheral downsizing the femoral head to allow to be extracted. Residual labrum was excised. A conservative removal of osteophyte was performed. He had huge osteophytes circumferentially. Under fluoroscopic guidance the acetabulum was medialized to the medial wall with the 44 Reamer and we reamed up to 53 and 53 trial had a nice fit. The bone was somewhat osteoporotic and a very light reaming with a 54 remove the peripheral ridge was performed and the 54 trial was tight. Fifty-four pinnacle shell was chosen and impacted fully seated at 40? of abduction and appropriate anteversion. Excellent Press-Fit was achieved. Single screw was placed in the ilium for additional fixation and the 36 inner diameter liner was fully seated. We then with fluoroscopic assistance removed a significant amount of the circumferential osteophyte minimize risk of impingement of the hip. Next the femur was externally rotated and extended with the table hook. The interval between conjoined tendon and piriformis was incised which allowed the piriformis to flip and the conjoined tendon to recess and this gave us adequate mobilization of the femur Canal was suction and we broached up to a size 7. We found that the +5 head was appropriate with respect to soft tissue tension and under fluoroscopy we saw that we lengthened at the planned amount. There is still some torsional play with the size 7 and we impacted the size 8 which was difficult to see fully but this was accomplished. Trialing again showed that the 1.5 was too loose in the size 5 was stable and she had appropriate. Final calcar planing was performed and we chose the size 8 Actis standard stem which was seated fully and came to rest on the calcar. We trialed the knee again the 1.5 was lose and the +5 was appropriate with respect to soft tissue tension and I felt this equalize the preoperative leg length plan more accurately. After thorough irrigation the size +5 x 36 ceramic head was impacted in the clean and dried trunnion. The wound was irrigated with Ancef solution hip reduced, stability and appropriate soft tissue tension Reconfirmed. Final fluoroscopic intraoperative x-ray was obtained. There were no cracks in the calcar and no radiographic complications. The loose capsule superiorly was excised and the capsule gently reapproximated with a 2. Vicryl. Local anesthetic cocktail was injected the periarticular soft tissues. Fascia was closed with running 1. Vicryl. Drain placed deep in the subcu skin closed with 2 subcutaneous Vicryl and glue. EBL was 450 cc. One hundred twenty-five given back as Cell Saver. Two additional g of Ancef and 1 g TXA given time wound closure. There were no complications. Patient did have a very brief episode of fracture bed ventricular response to the very beginning the procedure on the time of induction which went away with fentanyl and he did not require a beta-rickey during the procedure. [facility] Billing Surgery - Charge Forward: Surgery Billing (Left hip replacement)
--- NOTE | 2025-04-22 11:37 | PM.OP ---
Procedure Note - Brief Procedure Note - Brief Date of procedure: 04/22/25 left hip oa Procedure performed: Left anterior total hip arthroplasty Surgeon: AILYN Alfaro Findings: 75-year-old male underwent left anterior total hip arthroplasty on 04/22. I was involved in the procedure including positioning patient on the OR table in 1st assisting through the time surgery. Total time spent was 3-1/2 hours
--- NOTE | 2025-04-22 15:05 | ADMGEN ---
This patient, Ervin Monique, was admitted to 3 [facility] Surg Room 320-01. Patient/family oriented to hospital policies and general routines including ID bracelet, bed and alarms, visiting hours, pain management, procedures, bathroom and other care routines, personal items, smoking policy, room service/diet, and visiting hours. Information on how to activate the Rapid Response Team has been discussed. Patient/Family are encouraged to report perceived risks to care and to ask questions if they do not understand what they are told or what they should do.
--- NOTE | 2025-04-22 15:11 | PM.IMCN ---
Assessment and Plan Assessment and plan (1) Primary osteoarthritis of left hip: Code(s): M16.12 - Unilateral primary osteoarthritis, left hip Status: Acute Assessment and Plan: -Underwent anterior approach left total hip arthroplasty today with Dr. Lujan -Previous right total hip arthroplasty November 2024 -Eliquis ordered by Orthopedics to prevent DVT after surgery, aspirin still on hold -Antibiotics and pain medication plans also per Orthopedics (2) Atrial fibrillation: Onset Date: 2020 Code(s): I48.91 - Unspecified atrial fibrillation Status: Acute Assessment and Plan: -Monitor for rate control needs post operatively -Currently on telemetry but rate controlled and asymptomatic (3) History of right hip replacement: Code(s): Z96.641 - Presence of right artificial hip joint Status: Acute Assessment and Plan: -Noted (4) Hypertension: Code(s): I10 - Essential (primary) hypertension Status: Acute Assessment and Plan: -Patient not on home medications as BP is felt to be white-coat syndrome -Monitor for extremes in BP measurements HPI Date of Consult Consult date: 04/22/25 Requesting Physician: Hieu Lujan MD Primary Care Provider: Jermaine Newell APRN Consult Narrative Reason for consult: Medical management Narrative: Ervin Monique (preferred name is Abdirahman) is a 75 year old male who underwent anterior approach left total hip arthroplasty today. He previously had same surgery for the right hip in December 2024. Patient stopped his aspirin for a week prior to surgery and only other daily medication is a multivitamin. He has longstanding history of osteoarthritis which is the reason for his hip surgeries. Patient also has documented history of hypertension and atrial fibrillation (with refusal of anticoagulation) which is why he takes full strength aspirin daily. Patient insists that his history of hypertension is really just white coat syndrome however he stated that he has white coat syndrome even at home. He reports that his blood pressure usually runs about 137/87. Patient notes he is very particular and he intends to do his own therapy at home. He also expects to be discharged by 1430 since that is what time he was discharged when he had his right hip replaced. Telemetry shows afib with controlled ventricular rate in the 70s-80s. Patient reports his pain is improved this time compared to right hip replacement. Review of Systems Review of Systems: All systems reviewed & are unremarkable except as noted in HPI and below PMFSH Past Medical History Medical History Screening due Preop cardiovascular exam Other fatigue Primary osteoarthritis of both hips Low back pain Hip pain, bilateral Fall Elevated MCV Overweight Osteoarthritis Hypertension patient reports having white coat hypertension, not on antihypertensive Atrial fibrillation (2020) refuses anticoagulation Transient ischemic attack Broken clavicle Surgical History Surgical History History of total right hip arthroplasty (12/31/24) History of tonsillectomy Family History Family History Father Family history of Alzheimer's disease Mother No problems noted. Sibling No problems noted. Social History Social History Social History: Surrogate medical decision maker: Agustina Monique, spouse. Code status: Full code. Smoking status: Never smoker Second hand tobacco smoke exposure: No Additional smoking assessment comments: DENIES ANY TOBACCO USE Alcohol intake: current Drinks per week: 1 Alcohol use details: Beer Substance use: never Substance use type: does not use Last use: 12/09/24 Do You Feel Safe in your Home?: Yes Lack of Transportation: No Lack of Food: Never True Current Housing: I Have Housing Concerned About Future Housing: No Difficulty Paying Gas/Electric Bills: No Difficulty Paying for Meds: No Currently Unemployed: No Education: High School Diploma/GED Difficulty w/ Childcare or Family Care: No Living arrangements: with family Additional living arrangements comments: Lives with spouse in [place]. Occupation/Education: retired Additional occupation/education comments: [employer] care concerns: No Meds Home Medications and Allergies Home Medications ?Medication ?Instructions ?Recorded ?Confirmed ?Type aspirin 325 mg capsule 325 mg PO DAILY 04/01/25 04/22/25 History multivitamin (Daily Multi-Vitamin 1 tablet PO DAILY 04/01/25 04/22/25 History tablet) Allergies Allergy/AdvReac Type Severity Reaction Status Date / Time No Known Allergies Allergy Verified 04/22/25 07:15 Vital Signs Vital Signs - 24 hr 04/22/25 07:17 04/22/25 11:24 04/22/25 11:40 Temperature 36.7 C 37.5 C Pulse Rate 80 84 81 Respiratory Rate 16 8 L 10 L Blood Pressure 149/88 H 93/61 L 91/50 L Pulse Oximetry 100 98 99 Oxygen Delivery Room Air Simple Face Mask Simple Face Mask Oxygen Flow Rate 10 10 04/22/25 11:55 04/22/25 12:10 04/22/25 12:19 Temperature Pulse Rate 77 77 118 H Respiratory Rate 10 L 8 L 18 Blood Pressure 100/56 L 91/57 L 92/58 L Pulse Oximetry 100 100 100 Oxygen Delivery Simple Face Mask Simple Face Mask Simple Face Mask Oxygen Flow Rate 10 10 10 04/22/25 12:25 04/22/25 12:40 04/22/25 12:45 Temperature Pulse Rate 100 84 83 Respiratory Rate 16 14 10 L Blood Pressure 119/68 133/76 121/77 Pulse Oximetry 100 100 100 Oxygen Delivery Room Air Room Air Room Air Oxygen Flow Rate 04/22/25 13:00 04/22/25 13:15 04/22/25 13:25 Temperature Pulse Rate 90 78 79 Respiratory Rate 10 L 12 14 Blood Pressure 124/78 109/76 126/70 Pulse Oximetry 100 100 100 Oxygen Delivery Room Air Room Air Room Air Oxygen Flow Rate 04/22/25 13:55 04/22/25 14:25 04/22/25 14:29 Temperature 36.1 C L Pulse Rate 86 76 84 Respiratory Rate 15 16 16 Blood Pressure 122/68 113/72 113/68 Pulse Oximetry 99 99 98 Oxygen Delivery Room Air Room Air Oxygen Flow Rate Exam Narrative: GENERAL: Well-appearing, well-nourished, and in no acute distress. HEAD: Normocephalic, atraumatic. ENT:? Mucous membranes moist. CHEST: Clear to auscultation.? No respiratory distress. HEART: Regular rate and irregular rhythm. ? Normal peripheral pulses. ABDOMEN: Soft, nontender, nondistended. EXTREMITIES: Left hip dressing intact with drain and SCDs present SKIN: Warm dry normal color NEURO: Alert and oriented x3. PSYCH: Normal mood and affect Results Imaging Radiologist's impression: EXAMINATION: XR hip LT 1V w AP pelvis DATE: 04/22/2025 11:25 INDICATION: Left total hip arthroplasty TECHNIQUE: 2 views left hip FINDINGS: There is a left total hip arthroplasty in expected position. Subcutaneous gas with soft tissue swelling are consistent with recent surgery. There is also a right hip arthroplasty. IMPRESSION: 1. Recent left total hip arthroplasty. Reviewed, dictated and finalized at location A. EXAMINATION: XR surgery orthopedic DATE: 04/22/2025 10:57 INDICATION: Left total hip arthroplasty TECHNIQUE: Single AP fluoroscopic image of the left hip was obtained during procedure performed by Dr. Lujan. Radiologist was not present for the imaging or procedure. The amount of fluoroscopy time used during this procedure was 0.7 minutes. Total DAP was 0.237 mGym^2. COMPARISON: 07/04/2025 FINDINGS: Interval placement of a left total hip arthroplasty which appears well seated in near-anatomic alignment on the single provided projection. The acetabular component is affixed with at least a single screw. No fractures. Expected soft tissue gas at the operative bed. IMPRESSION: 1. Expected appearance post left total hip arthroplasty. See procedure note for further detail. Reviewed, dictated and finalized at location A. Quality VTE Prophylaxis VTE prophylaxis: pharmacologic ordered Hospitalist MIPS Advance Care Plan I have confirmed that the patient's Advanced Care Plan is present, code status is documented, or surrogate decision maker is listed in patient medical record.: Yes Medication Reconciliation I have utilized all available resources to obtain, update and review the patients current medications (includes all prescriptions, OTC, herbals, cannabis, and nutritional supplements).: Yes
[2025-04-22] MEDS: ceFAZolin 2 GM/D5W 50 ML 2 GM/50 ML BAG IVPB ×2 (16:35→23:17)
[2025-04-22] MEDS: ACETAMINOPHEN 325 MG TABLET 650 MG PO ×2 (16:36→21:14)
[2025-04-22] MEDS: VANCOMYCIN HCL 1,000 MG in SODIUM CHLORIDE 0.9% IV 250 ML 250 MG IVPB (17:56)
[2025-04-22] MEDS: FAMOTIDINE 20 MG TABLET PO (21:15)
[2025-04-23] VITALS: PULSE 71
[2025-04-23 00:02] VITALS: BP 144/70; PULSE 84; RESP 16; TEMP 36.8; O2SAT 100
[2025-04-23] MEDS: ACETAMINOPHEN 325 MG TABLET 650 MG PO ×3 (02:31→09:54)
[2025-04-23 04:21] VITALS: BP 92/67; PULSE 102; RESP 16; TEMP 36.9; O2SAT 100
[2025-04-23] MEDS: ceFAZolin 2 GM/D5W 50 ML 2 GM/50 ML BAG IVPB (06:11)
[2025-04-23 06:24] LABS: Hematocrit 37.2 % (42.0-52.0); Hemoglobin 12.3 g/dL (14.0-18.0); Immature Granulocyte Percent A 0.6 % (0-0.5); Lymphocytes Absolute Auto 1.19 K/mm3 (0.9-3.2); Mean Corpuscular HGB Conc 33.1 g/dl (32-36); Mean Corpuscular Hemoglobin 31.1 pg (26-34); Mean Corpuscular Volume 94.2 fl (80-100); Nucleated Red Blood Cells Absolute Auto 0.000 K/mm3 (0.0-0.012); Nucleated Red Blood Cells Perc 0.0 % (0.0-0.2); Platelet Count Result 191 k/mm3 (150-375); Red Blood Count 3.95 M/mm3 (4.6-6.20); White Blood Count 15.9 K/mm3 (4.5-10.0)
[2025-04-23 06:44] LABS: Anion Gap 6 mmol/L (4-12); Blood Urea Nitrogen 19 mg/dL (9-20); Calcium 8.3 mg/dL (8.4-10.2); Carbon Dioxide 23 mmol/L (22-30); Chloride 110 mmol/L (98-107); Estimated CRCL calculation 57 ml/min; Estimated Glomerular Filt Rate > 60; Glucose 107 mg/dL (65-110); Magnesium 1.8 mg/dL (1.6-2.3); Potassium 4.2 mmol/L (3.4-5.0); Sodium 139 mmol/L (137-145)
[2025-04-23] MEDS: VANCOMYCIN HCL 1,000 MG in SODIUM CHLORIDE 0.9% IV 250 ML 250 MG IVPB (06:48)
[2025-04-23 08:00] VITALS: BP 115/66; PULSE 85; PULSE 96; RESP 18; TEMP 36.4; O2SAT 99
[2025-04-23] MEDS: APIXABAN 2.5 MG TABLET PO (09:54)
[2025-04-23] MEDS: CELECOXIB 200 MG CAPSULE PO (09:54)
--- NOTE | 2025-04-23 09:54 | P.PNOP_ITS ---
Progress Note: A&P Assessment and Plan (1) Status post left hip replacement: Code(s): Z96.642 - Presence of left artificial hip joint Status: Acute Assessment and Plan: Patient is postop day 1. After left total hip replacement. Feels very good today and I witnessed him walk around his room without difficulty. He feels his pain is well controlled. His wound is dry. No significant swelling about the hip or lower extremity. His vital signs are stable except his morning blood pressure was 92 systolic. I will have the nurse recheck that. His heart rate was within normal range. His hemoglobin this morning is 12.3 which represents a mild acute blood loss anemia. BMP normal except for slight elevation of chloride 110. I reviewed precautions with him in detail and reviewed the discharge instruction s. Subjective Subjective Date/Time Seen: 04/23/25 09:54 Objective Data Vital Signs Vital Signs: Vital Signs - 24 hr 04/22/25 11:24 04/22/25 11:40 04/22/25 11:55 Temperature 37.5 C Pulse Rate 84 81 77 Respiratory Rate 8 L 10 L 10 L Blood Pressure 93/61 L 91/50 L 100/56 L Pulse Oximetry 98 99 100 Oxygen Delivery Simple Face Mask Simple Face Mask Simple Face Mask Oxygen Flow Rate 10 10 10 04/22/25 12:10 04/22/25 12:19 04/22/25 12:25 Temperature Pulse Rate 77 118 H 100 Respiratory Rate 8 L 18 16 Blood Pressure 91/57 L 92/58 L 119/68 Pulse Oximetry 100 100 100 Oxygen Delivery Simple Face Mask Simple Face Mask Room Air Oxygen Flow Rate 10 10 04/22/25 12:40 04/22/25 12:45 04/22/25 13:00 Temperature Pulse Rate 84 83 90 Respiratory Rate 14 10 L 10 L Blood Pressure 133/76 121/77 124/78 Pulse Oximetry 100 100 100 Oxygen Delivery Room Air Room Air Room Air Oxygen Flow Rate 04/22/25 13:15 04/22/25 13:25 04/22/25 13:55 Temperature Pulse Rate 78 79 86 Respiratory Rate 12 14 15 Blood Pressure 109/76 126/70 122/68 Pulse Oximetry 100 100 99 Oxygen Delivery Room Air Room Air Room Air Oxygen Flow Rate 04/22/25 14:25 04/22/25 14:29 04/22/25 14:44 Temperature 36.1 C L 36.4 C L Pulse Rate 76 84 90 Respiratory Rate 16 16 18 Blood Pressure 113/72 113/68 130/73 Pulse Oximetry 99 98 99 Oxygen Delivery Room Air Oxygen Flow Rate 04/22/25 15:14 04/22/25 16:00 04/22/25 16:14 Temperature 36.4 C L 36.4 C L Pulse Rate 85 83 83 Respiratory Rate 18 18 Blood Pressure 109/60 115/66 Pulse Oximetry 99 100 Oxygen Delivery Oxygen Flow Rate 04/22/25 20:00 04/22/25 20:00 04/22/25 20:11 Temperature 36.7 C Pulse Rate 84 87 82 Respiratory Rate 16 16 Blood Pressure 111/70 Pulse Oximetry 100 98 Oxygen Delivery Room Air Oxygen Flow Rate 04/23/25 00:00 04/23/25 00:02 04/23/25 04:21 Temperature 36.8 C 36.9 C Pulse Rate 71 84 102 H Respiratory Rate 16 16 Blood Pressure 144/70 H 92/67 L Pulse Oximetry 100 100 Oxygen Delivery Oxygen Flow Rate 04/23/25 08:12 Temperature Pulse Rate Respiratory Rate Blood Pressure Pulse Oximetry Oxygen Delivery Room Air Oxygen Flow Rate Intake/Output Intake/Output: Intake & Output 04/20/25 04/21/25 04/22/25 04/23/25 23:59 23:59 23:59 23:59 Intake Total 790 800 Output Total 300 635 Balance 490 165 Meds/Results Medications: Active Medications Generic Name Dose Route Start Last Admin Trade Name Freq PRN Reason Stop Dose Admin Acetaminophen 650 mg 04/22/25 17:00 04/23/25 06:14 Acetaminophen 325 Mg Tablet PO 650 mg Q4HR [facility] Administration Apixaban 2.5 mg 04/23/25 09:00 Apixaban 2.5 Mg Tablet PO 05/27/25 21:01 Q12HR [facility] Cefdinir 300 mg 04/23/25 15:00 Cefdinir 300 Mg Capsule PO Q12HR [facility] Celecoxib 200 mg 04/23/25 09:00 Celecoxib 200 Mg Capsule PO DAILY [facility] Famotidine 20 mg 04/22/25 21:00 04/22/25 21:15 Famotidine 20 Mg Tablet PO 20 mg Q12HR [facility] Administration Morphine Sulfate 2 mg 04/22/25 14:29 Morphine Sulfate (*Crx) 2 Mg/Ml Inj IV PUSH Q2H PRN Breakthrough Pain Rated 4-6 or NPO Multivitamins Therapeutic 1 tablet 04/23/25 09:00 Multivitamins Therapeutic Tab (*Bkc) PO DAILY [facility] Naloxone HCl 0.1 mg 04/22/25 14:29 Naloxone Hcl 0.4 Mg/Ml Vial IV PUSH Q2M PRN Opiate Reversal Ondansetron HCl 4 mg 04/22/25 14:29 Ondansetron Inj 4 Mg/2 Ml Vial IV PUSH Q4H PRN Nausea And Vomiting Oxycodone HCl 5 mg 04/22/25 17:00 04/23/25 06:01 Oxycodone Hcl (*Crx) 5 Mg Tab Ir PO Not Given Q4HR [facility] Oxycodone HCl 5 mg 04/22/25 14:29 Oxycodone Hcl (*Crx) 5 Mg Tab Ir PO Q4H PRN Pain Rated 7-10 Polyethylene Glycol 17 gm 04/23/25 09:00 Polyethylene Glycol 3350 17 Gm Powd.Pack PO QAM [facility] Senna/Docusate Sodium 2 tab 04/22/25 17:00 04/22/25 16:49 Senna/Docusate Sodium Tablet PO Not Given BID [facility] Radiology Results: ITS Impressions Hip/Pelvis X-Ray 04/22/25 11:42 IMPRESSION: 1. Recent left total hip arthroplasty. Intraoperative X-Ray 04/22/25 11:43 IMPRESSION: 1. Expected appearance post left total hip arthroplasty. See procedure note for further detail. Labs Labs: Laboratory Results - last 24 hr 04/23/25 05:57 WBC 15.9 H RBC 3.95 L Hgb 12.3 L D Hct 37.2 L MCV 94.2 MCH 31.1 MCHC 33.1 RDW 14.5 Plt Count 191 MPV 11.5 H Immature Gran % (Auto) 0.6 H Neut % (Auto) 80.5 H Lymph % (Auto) 7.5 L [place] % (Auto) 11.0 H Eos % (Auto) 0.1 Baso % (Auto) 0.3 Lymph # (Auto) 1.19 [place] # (Auto) 1.8 H Eos # (Auto) 0.0 Baso # (Auto) 0.0 Abs Immat Gran (auto) 0.09 H Absolute Neuts (auto) 12.8 H Absolute Nucleated RBC 0.000 Nucleated RBC % 0.0 Sodium 139 Potassium 4.2 Chloride 110 H Carbon Dioxide 23 Anion Gap 6 BUN 19 Creatinine 0.96 Estim Creat Clear Calc 57 Estimated GFR > 60 Glucose 107 Calcium 8.3 L Magnesium 1.8
== END 2025-04-23 10:42 | disposition home or self-care (01) ==
LOC: ANHSURGERY 06:04 → ANH3MEDSUR 14:30
PROVIDERS: Physician Assistant Surgical; PCP Nurse Practitioner; Visit Provider Orthopaedic Surgery
PROC: (CPT 27130; principal; 2025-04-22 07:30)
DX: M16.12 Unilateral primary osteoarthritis, left hip (principal); M25.752 Osteophyte, left hip; I48.91 Unspecified atrial fibrillation; I10 Essential (primary) hypertension; Z79.82 Long term (current) use of aspirin; Z98.890 Other specified postprocedural states; Z96.641 Presence of right artificial hip joint; Z86.73 Personal history of transient ischemic attack (TIA), and cerebral infarction without residual deficits
CPT/HCPCS: 27130; 36415; 73501; 80048; 83735; 85025; 86850; 86900; 86901; 97110; 97161; 97165; 97530; 99199; J0690; A9270; C1713; C1776; J0166; J1100; J1171; J1885; J2003; J2270; J2371; J2405; J2704; J2795; J3010; J3373; J7050; J7120